=== PATIENT | male | born 1985 | race Caucasian/White ===

== ENCOUNTER 2017-04-19 11:48 | Inpatient (IN) | payer MEDICAID ==
[~2017-04-19] VITALS: Ht 165.1 cm; Wt 52.6 kg
[~2017-04-19 11:48] MED LIST: ERYT.5%O RIGHT EYE; HYDR-3533 PO; Z.0.NO CURRENT MEDS
[2017-04-19 11:52] VITALS: BP 112/69; PULSE 65; RESP 12; TEMP 97.5; O2SAT 98
--- NOTE | 2017-04-19 12:01 | PD ---
Physical Exam Time Seen by Provider: 12:00 Narrative 31-year-old male presents via private vehicle after falling approximately 10 feet from a ladder today with complaint of left knee pain. Patient has cervical collar in place, but denies neck pain. Denies hitting his head or loss of consciousness. Denies back pain. Denies vomiting. Patient seen in triage. VS reviewed. Patient awaiting bed placement. Data Data Last Documented VS Vital Signs Date Time Temp Pulse Resp B/P (MAP) Pulse Ox O2 Delivery O2 Flow Rate FiO2 04/19/17 11:52 97.5 65 12 112/69 (83) 98 Orders Orders Knee, Complete (4vws) (04/19/17 12:01) MDM Supervised Visit with YESY: Roseline Kohli Apr 19, 2017 12:01
--- NOTE | 2017-04-19 13:09 | RADRPT ---
EXAM DATE/TIME: 04/19/2017 12:53 [facility] COMPARISON: No previous studies available for comparison. INDICATIONS : Fell from ladder today, pain entire left knee, especially anterior MEDICAL HISTORY : None. SURGICAL HISTORY : None. ENCOUNTER: Initial ACUITY: 1 day PAIN SCORE: 10/10 LOCATION: Left knee FINDINGS: There is a joint effusion with a fat fluid level on lateral view. There is a depressed fracture of th e medial tibial plateau by a proximally 7 mm. There is additional bone fragment laterally and posteri vijaya which is consistent with a posterior tibial fracture distracted. CONCLUSION: Hemarthrosis. Depressed fracture medial tibial plateau. Fracture posterior lateral tibia which is dis tracted. No evidence dislocation. Ulises Culver MD on April 19, 2017 at 13:05 Board Certified Radiologist. This report was verified electronically.
[2017-04-19 13:21] VITALS: BP 129/75; PULSE 67; RESP 18; O2SAT 100
[2017-04-19] MEDS ORDERED: SODIUM CHLOR 0.9% 1000 ML INJ 1,000 ML IV SCH (13:27)
[2017-04-19] MEDS ORDERED: MORPHINE SULFATE 4 MG/ML INJ IV PUSH ONE (13:30)
[2017-04-19] MEDS ORDERED: ONDANSETRON HCL 4 MG/2 ML VIAL IV PUSH ONE (13:30)
[2017-04-19 13:56] LABS: BASOPHIL % 0.3 % (0.0-2.0); EOSINOPHIL # 0.1 TH/MM3 (0-0.4); EOSINOPHIL % 0.5 % (0.0-4.0); HEMATOCRIT 47.3 % (39.0-51.0); HEMO FLAGS DIFF FINAL; LYMPH % 7.1 % (9.0-44.0); LYMPHOCYTE # 1.2 TH/MM3 (1.0-4.8); MEAN CELL VOLUME 87.3 FL (80.0-100.0); MEAN CORPUSCULAR HEMOGLOBIN 28.5 PG (27.0-34.0); MEAN CORPUSCULAR HGB CONC 32.6 % (32.0-36.0); MONO % 6.5 % (0.0-8.0); NEUT % 85.6 % (16.0-70.0); PLATELET COUNT 189 TH/MM3 (150-450); RED BLOOD COUNT 5.42 MIL/MM3 (4.50-5.90); RED CELL DISTRIBUTION WIDTH 12.9 % (11.6-17.2); WHITE BLOOD COUNT 17.5 TH/MM3 (4.0-11.0)
[2017-04-19 14:06] LABS: APTT (PATIENT) 22.8 SEC (24.3-30.1); PROTHROMBIN TIME - PATIENT 11.6 SEC (9.8-11.6)
[2017-04-19 14:15] LABS: BICARBONATE 28.2 MEQ/L (21.0-32.0); MAGNESIUM 2.4 MG/DL (1.5-2.5); POTASSIUM 3.8 MEQ/L (3.5-5.1)
--- NOTE | 2017-04-19 14:28 | PD ---
HPI Chief Complaint: Fall Time Seen by Provider: 13:25 Travel History International Travel<30 days: No Contact w/Intl Traveler<30days: No Traveled to known affect area: No History of Present Illness HPI 31-year-old male that presents to the ED for evaluation of fall. Patient reports that he was working on the roof on a ladder and he lost his balance and fell. Per patient he landed on his left knee. Patient has pain only to his left knee. He denies any other injury. States sign mild numbness around the area of the knee. Patient does have deformity that is obvious on exam on the left knee. No ankle, foot, hip pain noted. No back or neck pain. No head injury or loss of consciousness. Fall was witnessed by family members who attests to the kind of fall he had. Patient takes no medications. No prior injuries to this knee. Patient states that his pain is 10 out of 10. He is able to move the toes and the ankle. No obvious discoloration of the ankle. Patient does have a hematoma noted on the left knee. No allergies to medication. No other injuries noted. [facility] Past Medical History Medical History: Denies Significant Hx Tetanus Vaccination: Unknown Social History Alcohol Use: Yes ([facility]) Tobacco Use: Yes (1 PACK A DAY) Substance Use: Yes ([facility] ) Allergies-Medications (Allergen,Severity, Reaction): Coded Allergies: No Known Allergies (Verified , 04/19/17) Reported Meds & Prescriptions Reported Meds & Active Scripts Active No Active Prescriptions or Reported Medications Review of Systems Except as stated in HPI: all other systems reviewed are Neg Physical Exam Narrative GENERAL: SKIN: Warm and dry. HEAD: Atraumatic. Normocephalic. EYES: Pupils equal and round. No scleral icterus. No injection or drainage. ENT: No nasal bleeding or discharge. Mucous membranes pink and moist. Tongue is midline. No uvula deviation. NECK: Trachea midline. No JVD. CARDIOVASCULAR: Regular rate and rhythm. No murmurs, S3, S4. RESPIRATORY: No accessory muscle use. Clear to auscultation. Breath sounds equal bilaterally. GASTROINTESTINAL: Abdomen soft, non-tender, nondistended. Hepatic and splenic margins not palpable. MUSCULOSKELETAL: Extremities without clubbing, cyanosis, or edema. No obvious deformities. No lumbar, thoracic, cervical spine tenderness to palpation. Patient has full range of motion of the upper extremities with no pain. Full range of motion neck with no pain. No sign of head injury. Full range of motion of the ankles, toes, foot bilaterally with 2+ pulses bilaterally especially on the left foot in the dorsalis pedis and posterior tibialis. No obvious discoloration to the toes or foot bilaterally. Patient does have obvious deformity to the left knee with what appears to be slight subluxation of the lateral aspect of the tibia and fibula. Full ROM of the hips. sensation intact on my examination. NEUROLOGICAL: Awake and alert. No obvious cranial nerve deficits. Motor grossly within normal limits. Five out of 5 muscle strength in the arms and legs. Normal speech. PSYCHIATRIC: Appropriate mood and affect; insight and judgment normal. Data Data Last Documented VS Vital Signs Date Time Temp Pulse Resp B/P (MAP) Pulse Ox O2 Delivery O2 Flow Rate FiO2 04/19/17 13:26 (93) Room Air 04/19/17 13:21 64 18 100 04/19/17 11:52 97.5 Orders Orders Knee, Complete (4vws) (04/19/17 12:01) Electrocardiogram (04/19/17 13:23) Complete Blood Count With Diff (04/19/17 13:23) Basic Metabolic Panel (Bmp) (04/19/17 13:23) Prothrombin Time / Inr (Pt) (04/19/17 13:23) Act Partial Throm Time (Ptt) (04/19/17 13:23) Magnesium (Mg) (04/19/17 13:23) Chest, Single Ap (04/19/17 13:23) Iv Access Insert/Monitor (04/19/17 13:23) Ecg Monitoring (04/19/17 13:23) Oximetry (04/19/17 13:23) Splint Or Brace Apply/Monitor (04/19/17 13:23) Morphine Inj (Morphine Inj) (04/19/17 13:30) Ondansetron Inj (Zofran Inj) (04/19/17 13:30) Sodium Chlor 0.9% 1000 Ml Inj (Ns 1000 M (04/19/17 13:27) Ct Knee W/O Contrast (04/19/17 ) Mri Joint Knee W/O Contrast (04/19/17 14:09) Orbits, Limited (Two Views) (04/19/17 ) Cta Runoff W Iv Contrast W 3d (04/19/17 ) Type And Screen (04/19/17 15:18) Immobilizer Knee 20 Inch (04/19/17 ) Admit Order (Ed Use Only) (04/19/17 16:39) Labs Laboratory Tests Test 04/19/17 13:40 White Blood Count 17.5 TH/MM3 Red Blood Count 5.42 MIL/MM3 Hemoglobin 15.4 GM/DL Hematocrit 47.3 % Mean Corpuscular Volume 87.3 FL Mean Corpuscular Hemoglobin 28.5 PG Mean Corpuscular Hemoglobin Concent 32.6 % Red Cell Distribution Width 12.9 % Platelet Count 189 TH/MM3 Mean Platelet Volume 8.9 FL Neutrophils (%) (Auto) 85.6 % Lymphocytes (%) (Auto) 7.1 % Monocytes (%) (Auto) 6.5 % Eosinophils (%) (Auto) 0.5 % Basophils (%) (Auto) 0.3 % Neutrophils # (Auto) 15.0 TH/MM3 Lymphocytes # (Auto) 1.2 TH/MM3 Monocytes # (Auto) 1.1 TH/MM3 Eosinophils # (Auto) 0.1 TH/MM3 Basophils # (Auto) 0.0 TH/MM3 CBC Comment DIFF FINAL Differential Comment Prothrombin Time 11.6 SEC Prothromb Time International Ratio 1.0 RATIO Activated Partial Thromboplast Time 22.8 SEC Blood Urea Nitrogen 14 MG/DL Creatinine 1.15 MG/DL Random Glucose 99 MG/DL Calcium Level 8.8 MG/DL Magnesium Level 2.4 MG/DL Sodium Level 142 MEQ/L Potassium Level 3.8 MEQ/L Chloride Level 108 MEQ/L Carbon Dioxide Level 28.2 MEQ/L Anion Gap 6 MEQ/L Estimat Glomerular Filtration Rate 75 ML/MIN MDM Medical Decision Making Medical Screen Exam Complete: Yes Emergency Medical Condition: Yes Medical Record Reviewed: Yes Interpretation(s) CBC & BMP Diagram 04/19/17 13:40 Calcium Level 8.8, Magnesium Level 2.4 Last Impressions Chest X-Ray 04/19/17 1323 Signed Impressions: Service Date/Time: Wednesday, April 19, 2017 13:55 - CONCLUSION: No acute cardiopulmonary process. Brian Kyle MD Knee X-Ray 04/19/17 1201 Signed Impressions: Service Date/Time: Wednesday, April 19, 2017 12:53 - CONCLUSION: Hemarthrosis. Depressed fracture medial tibial plateau. Fracture posterior lateral tibia which is distracted. No evidence dislocation. Ulises Culver MD Orbit X-Ray 04/19/17 0000 Signed Impressions: Service Date/Time: Wednesday, April 19, 2017 14:38 - CONCLUSION: Cleared for MRI. Negative for metallic radiopaque foreign body Ulises Culver MD EKG shows sinus rythm with no sign of acute ischemia or arrythmia. Read by me and attending. coags WNL Differential Diagnosis Fracture versus dislocation versus fall versus trauma Narrative Course 31-year-old male that presents to the ED for evaluation of left knee injury. Patient was properly examined and was found to have signs and symptoms consistent with fracture. X-ray was done at triage and show fracture of the tibia Morrell as well as the fibula. Patient does have some subluxation. When patient was moved to the medical bed IV was established as well as labs and imaging were ordered. CT was ordered of the knee by me. Patient appears to be neurovascularly intact at this time. No sign of any neurological deficits. Patient will be put on a splint. Case was discussed with Dr. Echevarria over the phone who recommends MRI, CT and keeping the patient nothing by mouth. He will evaluate the patient to see whether the patient will need surgery today. He recommends admission to medicine. This was discussed with my attending Dr Fine who agrees with plan. This was discussed with patient and family who agree with plan. [facility] was paged. Initially the call center at had passed told us that they wanted is to consult with trauma surgeon. Spoke with Dr. Guerin CTA of the extremities. This was negative. He recommends admission through medicine as patient only has one injury and per patient this doesnt meed trauma team admission. Case discussed with Dr Roger who agrees to admission. Diagnosis Primary Impression: Tibial plateau fracture, left Qualified Codes: S82.142A - Displaced bicondylar fracture of left tibia, initial encounter for closed fracture Additional Impression: Fibula fracture Qualified Codes: S82.832A - Other fracture of upper and lower end of left fibula, initial encounter for closed fracture Admitting Information Admitting Physician Requests: Admit Scripts No Active Prescriptions or Reported Meds Jose Francisco Hargrove Apr 19, 2017 14:28
--- NOTE | 2017-04-19 14:54 | RADRPT ---
EXAM DATE/TIME: 04/19/2017 14:38 [facility] COMPARISON: No previous studies available for comparison. INDICATIONS : Evaluate for foreign body. Clearance for MRI. MEDICAL HISTORY : None. SURGICAL HISTORY : None. ENCOUNTER: Initial ACUITY: 1 day PAIN SCORE: 0/10 LOCATION: Bilateral orbits FINDINGS: Limited examination of the orbits was performed. There is no evidence of fracture involving the bony structures surrounding the orbits. The maxillary sinuses appear to be well aerated. No radiopaque foreign bodies are seen in the soft tissues. CONCLUSION: Cleared for MRI. Negative for metallic radiopaque foreign body Ulises Culver MD on April 19, 2017 at 14:52 Board Certified Radiologist. This report was verified electronically.
--- NOTE | 2017-04-19 14:58 | RADRPT ---
EXAM DATE/TIME: 04/19/2017 13:55 [facility] COMPARISON: No previous studies available for comparison. INDICATIONS : Evaluate for pneumonia, pneumothorax or communicable disease. Pre-op for knee surgery. MEDICAL HISTORY : Smoker. SURGICAL HISTORY : None. ENCOUNTER: Initial ACUITY: 1 day PAIN SCORE: 0/10 LOCATION: Bilateral chest FINDINGS: A single view of the chest demonstrates the lungs to be symmetrically aerated without evidence of mas s, infiltrate or effusion. The cardiomediastinal contours are unremarkable. Osseous structures are intact. CONCLUSION: No acute cardiopulmonary process. Brian Kyle MD on April 19, 2017 at 14:57 Board Certified Radiologist. This report was verified electronically.
--- NOTE | 2017-04-19 15:44 | PD.CAR.PN ---
CVT Progress Note Subjective/Hospital Course: Patient seen Consult dictated J Objective: Vital Signs Date Time Temp Pulse Resp B/P (MAP) Pulse Ox O2 Delivery O2 Flow Rate FiO2 04/19/17 13:26 (93) Room Air 04/19/17 13:21 64 18 100 Room Air 04/19/17 13:21 67 18 129/75 (93) 100 04/19/17 11:52 97.5 65 12 112/69 (83) 98 Labs: Laboratory Tests Test 04/19/17 13:40 White Blood Count 17.5 TH/MM3 (4.0-11.0) Red Blood Count 5.42 MIL/MM3 (4.50-5.90) Hemoglobin 15.4 GM/DL (13.0-17.0) Hematocrit 47.3 % (39.0-51.0) Mean Corpuscular Volume 87.3 FL (80.0-100.0) Mean Corpuscular Hemoglobin 28.5 PG (27.0-34.0) Mean Corpuscular Hemoglobin Concent 32.6 % (32.0-36.0) Red Cell Distribution Width 12.9 % (11.6-17.2) Platelet Count 189 TH/MM3 (150-450) Mean Platelet Volume 8.9 FL (7.0-11.0) Neutrophils (%) (Auto) 85.6 % (16.0-70.0) Lymphocytes (%) (Auto) 7.1 % (9.0-44.0) Monocytes (%) (Auto) 6.5 % (0.0-8.0) Eosinophils (%) (Auto) 0.5 % (0.0-4.0) Basophils (%) (Auto) 0.3 % (0.0-2.0) Neutrophils # (Auto) 15.0 TH/MM3 (1.8-7.7) Lymphocytes # (Auto) 1.2 TH/MM3 (1.0-4.8) Monocytes # (Auto) 1.1 TH/MM3 (0-0.9) Eosinophils # (Auto) 0.1 TH/MM3 (0-0.4) Basophils # (Auto) 0.0 TH/MM3 (0-0.2) CBC Comment DIFF FINAL Differential Comment Prothrombin Time 11.6 SEC (9.8-11.6) Prothromb Time International Ratio 1.0 RATIO Activated Partial Thromboplast Time 22.8 SEC (24.3-30.1) Blood Urea Nitrogen 14 MG/DL (7-18) Creatinine 1.15 MG/DL (0.60-1.30) Random Glucose 99 MG/DL (74-106) Calcium Level 8.8 MG/DL (8.5-10.1) Magnesium Level 2.4 MG/DL (1.5-2.5) Sodium Level 142 MEQ/L (136-145) Potassium Level 3.8 MEQ/L (3.5-5.1) Chloride Level 108 MEQ/L (98-107) Carbon Dioxide Level 28.2 MEQ/L (21.0-32.0) Anion Gap 6 MEQ/L (5-15) Estimat Glomerular Filtration Rate 75 ML/MIN (>89) Result Diagram: 04/19/17 1340 04/19/17 1340 Edmond Feliciano MD Apr 19, 2017 15:44
--- NOTE | 2017-04-19 16:09 | RADRPT ---
EXAM DATE/TIME: 04/19/2017 14:57 [facility] COMPARISON: KNEE LEFT COMPLETE (4VWS), April 19, 2017, 12:53. INDICATIONS : Trauma. Fell from ladder today. MEDICAL HISTORY : None. SURGICAL HISTORY : None. ENCOUNTER: Subsequent ACUITY: 1 day PAIN SCORE: 5/10 LOCATION: Left knee. TECHNIQUE: Multiplanar, multisequence MRI examination was performed without contrast. FINDINGS: CRUCIATE LIGAMENTS: ACL and PCL are intact. There is some fracturing of the anterior tibial spines slight laxity of the A CL MENISCI: There is tearing of the body and posterior horn medial meniscus. There is undersurface tearing of the posterior horn lateral meniscus and anterior horn lateral meniscus. COLLATERAL LIGAMENTS: MCL appears intact. There is tearing of the lateral collateral ligament. BONE/CARTILAGE: There is an oblique fracture through the medial tibial plateau with minimal depression. The fracture also extends across midline and involves the tibial spines and the anterior medial tibial plateau. No significant depression medial tibial plateau. There is also an avulsion fracture of the portions of the fibular head. Prominent contusion along the medial femoral condyle anteriorly and medially. Tiny fracture of the anterior medial femoral condyle. Extensive soft tissue swelling laterally. MISCELLANEOUS: Large lipohemarthrosis. CONCLUSION: 1. Oblique fracture of the medial tibial plateau with slight depression. The fracture line extends ac ross midline and involves the anterior tibial spines and anterior medial tibial plateau. 2. Minimal fracture of the anterior medial femoral condyle. 3. Tearing of both medial lateral menisci. 4. Avulsion fracture of the fibular head. 5. Extensive tearing of the lateral collateral ligament. Talat Burkett MD on April 19, 2017 at 15:56 Board Certified Radiologist. This report was verified electronically.
--- NOTE | 2017-04-19 16:19 | RADRPT ---
EXAM DATE/TIME: 04/19/2017 15:40 [facility] COMPARISON: KNEE LEFT COMPLETE (4VWS), April 19, 2017, 12:53. INDICATIONS : Left knee pain. RADIATION DOSE: 1.45 CTDIvol (mGy) MEDICAL HISTORY : None SURGICAL HISTORY : None. ENCOUNTER: Initial ACUITY: 1 day PAIN SCALE: 10/10 LOCATION: Left knee TECHNIQUE: Volumetric scanning of the knee was performed. Using automated exposure control and adjustment of th e mA and/or kV according to patient size, radiation dose was kept as low as reasonably achievable to obtain optimal diagnostic quality images. DICOM format image data is available electronically for re view and comparison. FINDINGS: BONES: Lipohemarthrosis. Fracture of the medial tibial plateau extending into the midline involves the anter ior tibial spine. Tiny fracture involving the anterior lateral tibial plateau. There is avulsion frac ture of small portion of the fibular head. JOINTS: Large joint effusion. SOFT TISSUES: Extensive soft tissue swelling. Muscles, tendons and neurovascular structures are grossly unremarkabl e. No evidence of mass, organized fluid collection, or foreign body. CONCLUSION: 1. Fracture of the medial tibial plateau extending into the midline involving anterior tibial spine. Slight depression. 2. Avulsion fracture small portion of the fibular head. 3. Minimal fracture of the anterior lateral tibial plateau and anterior medial femoral condyle. Talat Burkett MD on April 19, 2017 at 16:15 Board Certified Radiologist. This report was verified electronically.
--- NOTE | 2017-04-19 16:45 | HHI.HP ---
HPI Service [facility] Primary Care Physician No Primary Care Physician Admission Diagnosis left knee tibial plateau and proximal fibular fracture, fall Diagnoses: Chief Complaint: Status post fall Travel History International Travel<30 Days: No Contact w/Intl Traveler <30 Da: No Traveled to Known Affected Are: No History of Present Illness This is a pleasant 31 y/o with status post fall from a Ladder, after he lost his balance, Per patient he landed on his left knee. Patient has pain only to his left knee. He denies any other injury. States sign mild numbness around the area of the knee. Patient does have deformity that is obvious on exam on the left knee. No ankle , foot, hip pain noted. No back or neck pain. No head injury or loss of consciousness. Fall was witnessed by family members who attests to the kind of fall he had. Patient takes no medications. No prior injuries to this knee. Patient states that his pain is 10 out of 10. He is able to move the toes and the ankle. No obvious discoloration of the ankle. Patient does have a hematoma noted on the left knee. No allergies to medication. No other injuries noted. Seen in his bedroom in the presence of nurse and his Girlfriend miss Lissette Kang, Doctor Najma in to see the patient his plan is to keep the patient hospitalized because he will need a reconstruction of the knee. will be performed next Saturday04/22/17 Review of Systems Constitutional: DENIES: Fever, Chills, Change in appetite Endocrine: DENIES: Heat/cold intolerance Eyes: DENIES: Blurred vision, Eye pain Musculoskeletal: COMPLAINS OF: Joint pain Except as stated in HPI: all other systems reviewed are Neg Past Family Social History Past Medical History No significant Past medical History Past Surgical History No past surgical history Reported Medications Reported Meds & Active Scripts Active No Active Prescriptions or Reported Medications Allergies: Coded Allergies: No Known Allergies (Verified , 04/19/17) Active Ordered Medications Current Medications Medications (Trade) Dose Ordered Sig/Rico Route Start Time Stop Time Status Last Admin Sodium Chloride 1,000 ml @ 100 mls/hr Q10H IV 04/19/17 16:47 UNV (NS Flush) 2 ml UNSCH PRN IV FLUSH 04/19/17 17:00 UNV (NS Flush) 2 ml BID IV FLUSH 04/19/17 21:00 UNV (Tylenol) 650 mg Q4H PRN PO 04/19/17 17:00 UNV (Zofran Inj) 4 mg Q6H PRN IVP 04/19/17 17:00 UNV (Narcan Inj) 0.4 mg UNSCH PRN IV PUSH 04/19/17 17:00 UNV (Dayanara-Colace) 1 tab BID PO 04/19/17 21:00 UNV (Milk Of Magnesia Liq) 30 ml Q12H PRN PO 04/19/17 17:00 UNV (Senokot) 17.2 mg Q12H PRN PO 04/19/17 17:00 UNV (Dulcolax Supp) 10 mg DAILY PRN RECTAL 04/19/17 17:00 UNV (Lactulose Liq) 30 ml DAILY PRN PO 04/19/17 17:00 UNV Family History Father with CAD Social History Alcohol abuse Occasional Tobacco dependence one pack daily Marijuana abuse Physical Exam Vital Signs Vital Signs Date Time Temp Pulse Resp B/P (MAP) Pulse Ox O2 Delivery O2 Flow Rate FiO2 04/19/17 13:26 (93) Room Air 04/19/17 13:21 64 18 100 Room Air 04/19/17 13:21 67 18 129/75 (93) 100 04/19/17 11:52 97.5 65 12 112/69 (83) 98 Physical Exam GENERAL: Well developed in no acute distress. SKIN: Warm and dry. HEAD: Atraumatic. Normocephalic. EYES: Pupils equal and round. No scleral icterus. No injection or drainage. ENT: No nasal bleeding or discharge. Mucous membranes pink and moist. Tongue is midline. No uvula deviation. NECK: Trachea midline. No JVD. CARDIOVASCULAR: Regular rate and rhythm. No murmurs, S3, S4. RESPIRATORY: No accessory muscle use. Clear to auscultation. Breath sounds equal bilaterally. GASTROINTESTINAL: Abdomen soft, non-tender, nondistended. Hepatic and splenic margins not palpable. MUSCULOSKELETAL: Patient does have obvious deformity to the left knee with what appears to be slight subluxation of the lateral aspect of the tibia and fibula. NEUROLOGICAL: Awake and alert. No obvious cranial nerve deficits. Motor grossly within normal limits. Five out of 5 muscle strength in the arms and legs. Normal speech. PSYCHIATRIC: Appropriate mood and affect; insight and judgment normal. Laboratory Laboratory Tests Test 04/19/17 13:40 White Blood Count 17.5 Red Blood Count 5.42 Hemoglobin 15.4 Hematocrit 47.3 Mean Corpuscular Volume 87.3 Mean Corpuscular Hemoglobin 28.5 Mean Corpuscular Hemoglobin Concent 32.6 Red Cell Distribution Width 12.9 Platelet Count 189 Mean Platelet Volume 8.9 Neutrophils (%) (Auto) 85.6 Lymphocytes (%) (Auto) 7.1 Monocytes (%) (Auto) 6.5 Eosinophils (%) (Auto) 0.5 Basophils (%) (Auto) 0.3 Neutrophils # (Auto) 15.0 Lymphocytes # (Auto) 1.2 Monocytes # (Auto) 1.1 Eosinophils # (Auto) 0.1 Basophils # (Auto) 0.0 CBC Comment DIFF FINAL Differential Comment Prothrombin Time 11.6 Prothromb Time International Ratio 1.0 Activated Partial Thromboplast Time 22.8 Blood Urea Nitrogen 14 Creatinine 1.15 Random Glucose 99 Calcium Level 8.8 Magnesium Level 2.4 Sodium Level 142 Potassium Level 3.8 Chloride Level 108 Carbon Dioxide Level 28.2 Anion Gap 6 Estimat Glomerular Filtration Rate 75 Result Diagram: 04/19/17 1340 04/19/17 1340 Imaging Last Impressions Knee MRI 04/19/17 1409 Signed Impressions: Service Date/Time: Wednesday, April 19, 2017 14:57 - CONCLUSION: 1. Oblique fracture of the medial tibial plateau with slight depression. The fracture line extends across midline and involves the anterior tibial spines and anterior medial tibial plateau. 2. Minimal fracture of the anterior medial femoral condyle. 3. Tearing of both medial lateral menisci. 4. Avulsion fracture of the fibular head. 5. Extensive tearing of the lateral collateral ligament. Talat Burkett MD Chest X-Ray 04/19/17 1323 Signed Impressions: Service Date/Time: Wednesday, April 19, 2017 13:55 - CONCLUSION: No acute cardiopulmonary process. Brian Kyle MD Knee X-Ray 04/19/17 1201 Signed Impressions: Service Date/Time: Wednesday, April 19, 2017 12:53 - CONCLUSION: Hemarthrosis. Depressed fracture medial tibial plateau. Fracture posterior lateral tibia which is distracted. No evidence dislocation. Ulises Cluver MD Orbit X-Ray 04/19/17 0000 Signed Impressions: Service Date/Time: Wednesday, April 19, 2017 14:38 - CONCLUSION: Cleared for MRI. Negative for metallic radiopaque foreign body Ulises Culver MD Lower Extremity CT 04/19/17 0000 Signed Impressions: Service Date/Time: Wednesday, April 19, 2017 15:40 - CONCLUSION: 1. Fracture of the medial tibial plateau extending into the midline involving anterior tibial spine. Slight depression. 2. Avulsion fracture small portion of the fibular head. 3. Minimal fracture of the anterior lateral tibial plateau and anterior medial femoral condyle. MD Harrison Louise VTE Risk Assessment Caprini VTE Risk Assessment: No/Low Risk (score <= 1) Caprini Risk Assessment Model Point Value = 1 Point Value = 2 Point Value = 3 Point Value = 5 Age 41-60 Minor surgery BMI > 25 kg/m2 Swollen legs Varicose veins or History of unexplained or recurrent spontaneous Oral contraceptives or hormone replacement Sepsis (< 1 month) Serious lung disease, including pneumonia (< 1 month) Abnormal pulmonary function Acute myocardial infarction Congestive heart failure (< 1 month) History of inflammatory bowel disease Medical patient at bed rest Age 61-74 Arthroscopic surgery Major open surgery (> 45 min) Laparoscopic surgery (> 45 min) Malignancy Confined to bed (> 72 hours) Immobilizing plaster cast Central venous access Age >= 75 History of VTE Family history of VTE Factor V Leiden Prothrombin [id number] Lupus anticoagulant Anticardiolipin antibodies Elevated serum homocysteine Heparin-induced thrombocytopenia Other congenital or acquired thrombophilia Stroke (< 1 month) Elective arthroplasty Hip, pelvis, or leg fracture Acute spinal cord injury (< 1 month) Prophylaxis Regimen Total Risk Factor Score Risk Level Prophylaxis Regimen 0-1 Low Early ambulation 2 Moderate Order ONE of the following: *Sequential Compression Device (SCD) *Heparin 5000 units SQ BID 3-4 Higher Order ONE of the following medications: *Heparin 5000 units SQ TID *Enoxaparin/Lovenox 40 mg SQ daily (WT < 150 kg, CrCl > 30 mL/min) *Enoxaparin/Lovenox 30 mg SQ daily (WT < 150 kg, CrCl > 10-29 mL/min) *Enoxaparin/Lovenox 30 mg SQ BID (WT < 150 kg, CrCl > 30 mL/min) AND/OR *Sequential Compression Device (SCD) 5 or more Highest Order ONE of the following medications: *Heparin 5000 units SQ TID (Preferred with Epidurals) *Enoxaparin/Lovenox 40 mg SQ daily (WT < 150 kg, CrCl > 30 mL/min) *Enoxaparin/Lovenox 30 mg SQ daily (WT < 150 kg, CrCl > 10-29 mL/min) *Enoxaparin/Lovenox 30 mg SQ BID (WT < 150 kg, CrCl > 30 mL/min) AND *Sequential Compression Device (SCD) Assessment and Plan Assessment and Plan 1. Left Tibial Plateau Fracture with Displaced bicondylar fracture of left tibia, initial encounter for closed fracture seen in the presence of Doctor Giovanni Yao asked to keep the patient Hospitalized until next 04/22/17 and he will have procedure performed that day 2. Tobacco dependence strongly recommended to stop smoking, Nicotine patch started 3. Marijuana abuse strongly recommended to stop behavior. DVT prophylaxis with Lovenox if surgery not planned now Code Status Full Code Discussed Condition With Jose Francisco Hargrove Patient and his Girlfriend Miss Lissette Kang, all questions answered to the best of my abilities Doctor Yao in to see patient at this time he states the procedure will be performed with another specialist for next Saturday04/22/17 due to the complexity of the trauma. and needs reconstruction. Physician Certification 2 Midnight Certification Type: Admission for Inpatient Services Order for Inpatient Services The services are ordered in accordance with Medicare regulations or non- Medicare payer requirements, as applicable. In the case of services not specified as inpatient-only, they are appropriately provided as inpatient services in accordance with the 2-midnight benchmark. Estimated LOS (days): 3 days is the estimated time the patient will need to remain in the hospital, assuming treatment plan goals are met and no additional complications. Post-Hospital Plan: Not yet determined Mal Campbell MD Apr 19, 2017 16:45
[2017-04-19] MEDS ORDERED: IOHEXOL 350 MG/ML 10 ML VIAL (for RAD DIAG) IVCONTRAST ONE (16:49)
[2017-04-19] MEDS ORDERED: BISACODYL 10 MG SUPP RECTAL PRN (17:00)
[2017-04-19] MEDS ORDERED: ONDANSETRON HCL 4 MG/2 ML VIAL IVP PRN (17:00)
[2017-04-19] MEDS ORDERED: NALOXONE HCL 0.4 MG/ML AMP IV PUSH PRN (17:00)
[2017-04-19] MEDS ORDERED: MAGNESIUM HYDROXIDE SUSP 30 ML CUP PO PRN (17:00)
[2017-04-19] MEDS ORDERED: SODIUM CHLORIDE 0.9% FLUSH 10 ML FLUSH IV FLUSH PRN (17:00)
[2017-04-19] MEDS ORDERED: SENNOSIDES 8.6 MG TAB PO PRN (17:00)
[2017-04-19] MEDS ORDERED: ACETAMINOPHEN 325 MG TAB PO PRN ×2 (17:00→17:30)
--- NOTE | 2017-04-19 17:05 | RADRPT ---
EXAM DATE/TIME: 04/19/2017 15:40 [facility] COMPARISON: No previous studies available for comparison. INDICATIONS : Trauma, fall from tree. Left knee injury. IV CONTRAST: 96 cc Omnipaque 350 (iohexol) IV RADIATION DOSE: 2.45 CTDIvol (mGy) MEDICAL HISTORY : None SURGICAL HISTORY : None. ENCOUNTER: Initial ACUITY: 1 day PAIN SCALE: 10/10 LOCATION: Left knee TECHNIQUE: Volumetric scanning was performed using a multi-row detector CT scanner. The data was post processed with a variety of visualization algorithms including full volume maximum intensity projection, multi -planar sliding thin slab reformation, curved planar reformation, and surface rendering techniques. Using automated exposure control and adjustment of the mA and/or kV according to patient size, radiat ion dose was kept as low as reasonably achievable to obtain optimal diagnostic quality images. DICO M format image data is available electronically for review and comparison. FINDINGS: ABDOMINAL AORTA: The lumen is smooth without significant narrowing or aneurysmal dilation. A 50% ostial stenosis of katelyn th the celiac and the SMA.. There are solitary renal arteries bilaterally without gross abnormality. BIFURCATION: Normal. RIGHT PELVIS: The right common iliac, internal iliac, and external iliac vessels are patent without luminal irregul arity. LEFT PELVIS: The left common iliac, internal iliac, and external iliac vessels are patent and without luminal irre gularity. RIGHT THIGH: The superficial femoral and profunda vessels are patent without luminal irregularity. LEFT THIGH: The superficial femoral and profunda vessels are patent without luminal irregularity. RIGHT KNEE: The distal femoral and popliteal arteries are patent without luminal irregularity. LEFT KNEE: The distal femoral and popliteal arteries are patent without luminal irregularity. Comminuted tibial plateau fracture medially. RIGHT LEG: The trifurcation is intact. LEFT LEG: The trifurcation is intact. CONCLUSION: 1. Comminuted tibial plateau fracture medially on the left. 2. 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 3. Otherwise, inflow and outflow vasculature is patent bilaterally. Brian Kyle MD on April 19, 2017 at 16:53 Board Certified Radiologist. This report was verified electronically.
--- NOTE | 2017-04-19 17:47 | MB ---
cc: EDMOND BRIZUELA MD DATE OF CONSULTATION: 04/19/2017. REASON FOR CONSULTATION: Hemarthroses of the left knee. Fracture of the tibial plateau. HISTORY OF PRESENT ILLNESS: This 31-year-old male fell off a ladder and was brought in as regular ER evaluation. On workup, he was found to have a small tibial plateau fracture measuring about 8 mm and he also possibly had a knee dislocation. In addition, he has swelling of the knee consistent with hemarthrosis. I have been asked to see the patient for the same plus the possible vascular injury. PAST MEDICAL HISTORY: The patient has been here several times with minor issues in the emergency room. PAST SURGICAL HISTORY: The past surgical history is negative. MEDICATIONS: None. ALLERGIES: NONE. SOCIAL HISTORY: The patient smokes a pack a day of cigarettes and uses pot. PHYSICAL EXAMINATION: GENERAL: The physical examination reveals a pleasant 31-year-old male. HEAD, EYES, EARS, NOSE, THROAT: Normocephalic. No trauma to the head. Pupils equal and reactive. Extraocular muscles intact. No hemotympanum. No monsalve sign. No signs of trauma to the head. NECK: The neck is supple. Bilateral carotid pulses. No signs of trauma to the neck. CHEST: Clear. Bilateral breath sounds. HEART: Regular rhythm. No signs of trauma to the chest or abdomen. The abdomen is soft. Active bowel sounds. No rebound. No guarding. No masses. EXTREMITIES: The patient has normal brachial, radial and ulnar pulses. The patient has normal femoral bilateral pulses, popliteal pulses and dorsalis pedis and posterior tibial pulses bilaterally. There are no hard or soft signs of vascular injury on the left that would indicate injury to the popliteal artery. NEUROLOGIC: The patient is fully intact. IMPRESSION: A patient with hemarthrosis of the left knee plus plateau fracture due to the fall. Patients like this can have a posterior knee dislocation and have occult injury to the popliteal artery so it is imperative in these situations to perform CTA of the knee. If this is negative, the patient is cleared from the trauma point and vascular point and further care can be through orthopedics and the patient can be admitted with a single injury to their service. ACS and ASCOT specified the trauma patients of those with ISS score of 15 or above and those admitted to trauma service in a level I and level II Trauma Ctr. Edmond GREGORY /3:41 PM /5:34 PM [facility]
[2017-04-19 17:49] VITALS: BP 140/88; PULSE 74; RESP 20; O2SAT 100
--- NOTE | 2017-04-19 18:19 | MB ---
cc: LEE GONG M.D. DATE OF CONSULTATION: 04/19/2017. REASON FOR CONSULTATION: The patient has a left leg tibial plateau fracture and lateral collateral ligament injury. HISTORY OF PRESENT ILLNESS: The patient is a 31-year-old man who fell off a ladder when he lost balance and landed onto his left knee. He does not complain of pain in other body areas. He does not describe any specific numbness or tingling associated with the left leg. He has had no previous problems with the leg in the past. He was unable to ambulate after the injury. His pain is a 10/10. The emergency room had contacted me after seeing the x-rays and recommended to obtain a CT scan and an MRI of the knee. PAST MEDICAL HISTORY: His past medical history is negative. PAST SURGICAL HISTORY: None. REVIEW OF SYSTEMS: A twelve-point review of systems is negative except as noted in the history of present illness. SOCIAL HISTORY: The patient drinks alcohol occasionally and smokes one pack per day and does smoke marijuana. PHYSICAL EXAMINATION: GENERAL: The patient's temperature is 97.5, pulse 65, respirations 12, blood pressure 112/69. GENERAL: The patient is awake, alert and oriented times three with normal affect, insight and judgment. He is not in significant acute distress. HEAD, EYES, EARS, NOSE, THROAT: Atraumatic. Pupils are equal with extraocular muscles are intact. NECK: Neck is nontender and supple. BACK: No CVA tenderness. HEART: Regular rate and rhythm. LUNGS: Clear to auscultation bilaterally. ABDOMEN: The abdomen is soft, nontender and nondistended. EXTREMITIES: The left lower extremity is currently in a canvas knee splint. He can move the toes well. His extensor hallucis longus and tibialis anterior and gastrocnemius are intact. There is normal sensation distally. He has 2+ dorsalis pedis pulse distally. His lower calf has no swelling. The right leg and bilateral upper extremities have good alignment and normal range of motion and no tenderness. LABORATORY DATA White cell count 17.5, hematocrit 47.3, platelets 189,000. Glucose 99, creatinine 1.15. IMAGING STUDIES: I have reviewed x-rays, a CT scan and MRI and I also reviewed the radiology report. Essentially the x-rays show a comminuted displaced medial tibial plateau fracture. There is some subluxation of the joint and then there is a fracture of the head of the fibula which is significantly displaced. The CT scan confirms these findings but overall the alignment does look more improved than the original x-rays as far as the alignment of the tibial femoral joint. The medial plateau fracture also seems a little less displaced. The MRI shows not only the fracture of the medial tibial plateau but it also shows injury to the lateral collateral ligament as would be expected with the fracture of the fibular head. The radiologist feels that the posterior cruciate ligament is intact, although I am suspicious for possible posterior cruciate ligament tear. The anterior cruciate ligament appears to be intact. There is tears of the medial and lateral menisci. IMPRESSION: 1. Left medial tibial plateau fracture, comminuted. 2. Left lateral collateral ligament injury with fracture of the head of the fibula. 3. Medial and lateral meniscal tears. 4. Possible posterior cruciate ligament injury. 5. Chronic tobacco use. DECISION-MAKING: This is a very complex pattern of injury for the left knee which may require the assistance of multiple sub-specialties. Overall the alignment looks good of the bones within the canvas knee splint. The patient is being admitted for ice and elevation. He will continue with the canvas knee splint. The patient will require surgical management, which will consist at the least of an open reduction internal fixation of the medial tibial plateau and repair of the lateral collateral ligament and/or fibular head. The patient may require further surgical management beyond this. I would like to consult an orthopedic trauma sub-specialist to evaluate the patient to assist with surgical management. All questions have been answered. MD RAMIN Hicks/JAILENE /5:11 PM /6:03 PM WILLIAM
[2017-04-19] MEDS: NICOTINE 21 MG/24 HR PATCH T-DERMAL SCH (18:25)
[2017-04-19] MEDS: SODIUM CHLOR 0.9% 1000 ML INJ 1,000 ML IV SCH (18:25)
[2017-04-19 20:00] VITALS: BP 121/69
[2017-04-19 21:00] VITALS: BP 127/71; PULSE 71; RESP 18; TEMP 98.9; O2SAT 100
[2017-04-19] MEDS ORDERED: ACETAMINOPHEN/HYDROcodone 325 MG/5 MG TAB PO PRN (21:00)
[2017-04-19] MEDS: DOCUSATE SODIUM 50 MG/SENNA 8.6 MG TAB PO SCH (21:36)
[2017-04-19] MEDS: SODIUM CHLORIDE 0.9% FLUSH 10 ML FLUSH IV FLUSH SCH (21:37)
[2017-04-19] MEDS: HEPARIN SODIUM - SQ 10,000 UNITS/ML VIAL SQ SCH (21:37)
[2017-04-19] MEDS: ACETAMINOPHEN/HYDROcodone 325 MG/7.5 MG TAB PO PRN (22:15)
[2017-04-20 00:20] VITALS: BP 113/62; PULSE 70; RESP 18; TEMP 97.8; O2SAT 99
[2017-04-20] MEDS: ACETAMINOPHEN/HYDROcodone 325 MG/7.5 MG TAB PO PRN ×5 (03:31→21:08)
[2017-04-20] MEDS: SODIUM CHLOR 0.9% 1000 ML INJ 1,000 ML IV SCH ×3 (04:00→22:51)
[2017-04-20 04:06] VITALS: BP 132/76; PULSE 74; RESP 18; TEMP 98.5; O2SAT 99
[2017-04-20] MEDS ORDERED: SODIUM CHLORID 0.9% 500 ML IV PRN (05:45)
[2017-04-20] MEDS ORDERED: POVIDONE IODINE 5% (ANTISEPSIS KIT) 4 APPLICATIONS EACH NARE PRN (05:45)
[2017-04-20] MEDS ORDERED: CHLORHEXIDINE GLUCONATE 2 % 1 PACK (2 CLOTHS) TOPICAL PRN (05:45)
[2017-04-20] MEDS ORDERED: INSULIN HUMAN REGULAR 1,000 UNITS/10 ML VIAL SQ PRN (05:45)
[2017-04-20] MEDS ORDERED: LACTATED RINGER'S 1000 ML IV PRN (05:45)
[2017-04-20 08:00] VITALS: BP 130/75; PULSE 68; RESP 18; TEMP 97; O2SAT 100
--- NOTE | 2017-04-20 08:33 | HHI.PR ---
Subjective Remarks This is a pleasant 31 y/o with status post fall from a Ladder, after he lost his balance, Per patient he landed on his left knee. Patient has pain only to his left knee. He denies any other injury. States sign mild numbness around the area of the knee. Patient does have deformity that is obvious on exam on the left knee. No ankle , foot, hip pain noted. No back or neck pain. No head injury or loss of consciousness. Fall was witnessed by family members who attests to the kind of fall he had. Patient takes no medications. No prior injuries to this knee. Patient states that his pain is 10 out of 10. He is able to move the toes and the ankle. No obvious discoloration of the ankle. Patient does have a hematoma noted on the left knee. No allergies to medication. No other injuries noted. Seen in his bedroom in the presence of nurse and his Girlfriend miss Lissette Kang, Doctor Najma in to see the patient his plan is to keep the patient hospitalized because he will need a reconstruction of the knee. will be performed next Saturday04/22/1704/20: seen in his bedroom in the presence of his , and Daughter, no nausea , vomit or diarrhea awaiting for surgery for 04/22/17. Objective Vital Signs Date Time Temp Pulse Resp B/P (MAP) Pulse Ox O2 Delivery O2 Flow Rate FiO2 04/20/17 04:06 98.5 74 18 132/76 (94) 99 04/20/17 00:20 97.8 70 18 113/62 (79) 99 04/19/17 21:00 98.9 71 18 127/71 (89) 100 04/19/17 20:00 80 15 121/69 (86) 100 04/19/17 17:49 74 20 140/88 (105) 100 Room Air 04/19/17 13:26 (93) Room Air 04/19/17 13:21 64 18 100 Room Air 04/19/17 13:21 67 18 129/75 (93) 100 04/19/17 11:52 97.5 65 12 112/69 (83) 98 I/O 04/19/17 04/19/17 04/19/17 04/20/17 04/20/17 04/20/17 07:00 15:00 23:00 07:00 15:00 23:00 Intake Total 1000 ml 240 ml 0 ml Output Total 300 ml Balance 1000 ml 240 ml -300 ml Intake Oral 240 ml 0 ml IV Total 1000 ml Output Urine Total 300 ml # Bowel Movements 0 Result Diagram: 04/19/17 1340 04/19/17 1340 Imaging Last Impressions Knee MRI 04/19/17 1409 Signed Impressions: Service Date/Time: Wednesday, April 19, 2017 14:57 - CONCLUSION: 1. Oblique fracture of the medial tibial plateau with slight depression. The fracture line extends across midline and involves the anterior tibial spines and anterior medial tibial plateau. 2. Minimal fracture of the anterior medial femoral condyle. 3. Tearing of both medial lateral menisci. 4. Avulsion fracture of the fibular head. 5. Extensive tearing of the lateral collateral ligament. Talat Burkett MD Chest X-Ray 04/19/17 1323 Signed Impressions: Service Date/Time: Wednesday, April 19, 2017 13:55 - CONCLUSION: No acute cardiopulmonary process. Brian Kyle MD Knee X-Ray 04/19/17 1201 Signed Impressions: Service Date/Time: Wednesday, April 19, 2017 12:53 - CONCLUSION: Hemarthrosis. Depressed fracture medial tibial plateau. Fracture posterior lateral tibia which is distracted. No evidence dislocation. Ulises Culver MD Orbit X-Ray 04/19/17 0000 Signed Impressions: Service Date/Time: Wednesday, April 19, 2017 14:38 - CONCLUSION: Cleared for MRI. Negative for metallic radiopaque foreign body Ulises Culver MD Lower Extremity CT 04/19/17 0000 Signed Impressions: Service Date/Time: Wednesday, April 19, 2017 15:40 - CONCLUSION: 1. Fracture of the medial tibial plateau extending into the midline involving anterior tibial spine. Slight depression. 2. Avulsion fracture small portion of the fibular head. 3. Minimal fracture of the anterior lateral tibial plateau and anterior medial femoral condyle. Talat Burkett MD Aorta w/Runoff CTA 04/19/17 0000 Signed Impressions: Service Date/Time: Wednesday, April 19, 2017 15:40 - CONCLUSION: 1. Comminuted tibial plateau fracture medially on the left. 2. 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 3. Otherwise, inflow and outflow vasculature is patent bilaterally. Brian Kyle MD Procedures None Other Results Laboratory Tests Test 04/19/17 13:40 White Blood Count 17.5 TH/MM3 Red Blood Count 5.42 MIL/MM3 Hemoglobin 15.4 GM/DL Hematocrit 47.3 % Mean Corpuscular Volume 87.3 FL Mean Corpuscular Hemoglobin 28.5 PG Mean Corpuscular Hemoglobin Concent 32.6 % Red Cell Distribution Width 12.9 % Platelet Count 189 TH/MM3 Mean Platelet Volume 8.9 FL Neutrophils (%) (Auto) 85.6 % Lymphocytes (%) (Auto) 7.1 % Monocytes (%) (Auto) 6.5 % Eosinophils (%) (Auto) 0.5 % Basophils (%) (Auto) 0.3 % Neutrophils # (Auto) 15.0 TH/MM3 Lymphocytes # (Auto) 1.2 TH/MM3 Monocytes # (Auto) 1.1 TH/MM3 Eosinophils # (Auto) 0.1 TH/MM3 Basophils # (Auto) 0.0 TH/MM3 CBC Comment DIFF FINAL Differential Comment Prothrombin Time 11.6 SEC Prothromb Time International Ratio 1.0 RATIO Activated Partial Thromboplast Time 22.8 SEC Blood Urea Nitrogen 14 MG/DL Creatinine 1.15 MG/DL Random Glucose 99 MG/DL Calcium Level 8.8 MG/DL Magnesium Level 2.4 MG/DL Sodium Level 142 MEQ/L Potassium Level 3.8 MEQ/L Chloride Level 108 MEQ/L Carbon Dioxide Level 28.2 MEQ/L Anion Gap 6 MEQ/L Estimat Glomerular Filtration Rate 75 ML/MIN Objective Remarks GENERAL: Well developed in no acute distress. SKIN: Warm and dry. HEAD: Atraumatic. Normocephalic. EYES: Pupils equal and round. No scleral icterus. No injection or drainage. ENT: No nasal bleeding or discharge. Mucous membranes pink and moist. Tongue is midline. No uvula deviation. NECK: Trachea midline. No JVD. CARDIOVASCULAR: Regular rate and rhythm. No murmurs, S3, S4. RESPIRATORY: No accessory muscle use. Clear to auscultation. Breath sounds equal bilaterally. GASTROINTESTINAL: Abdomen soft, non-tender, nondistended. Hepatic and splenic margins not palpable. MUSCULOSKELETAL: Patient does have obvious deformity to the left knee with what appears to be slight subluxation of the lateral aspect of the tibia and fibula. NEUROLOGICAL: Awake and alert. No obvious cranial nerve deficits. Motor grossly within normal limits. Five out of 5 muscle strength in the arms and legs. Normal speech. PSYCHIATRIC: Appropriate mood and affect; insight and judgment normal. Medications and IVs Current Medications Medications (Trade) Dose Ordered Sig/Rico Route Start Time Stop Time Status Last Admin Sodium Chloride 1,000 ml @ 100 mls/hr Q10H IV 04/19/17 18:00 04/20/17 04:00 (NS Flush) 2 ml UNSCH PRN IV FLUSH 04/19/17 17:00 (NS Flush) 2 ml BID IV FLUSH 04/19/17 21:00 (Tylenol) 650 mg Q4H PRN PO 04/19/17 17:00 04/19/17 18:16 (Zofran Inj) 4 mg Q6H PRN IVP 04/19/17 17:00 (Narcan Inj) 0.4 mg UNSCH PRN IV PUSH 04/19/17 17:00 (Dayanara-Colace) 1 tab BID PO 04/19/17 21:00 04/19/17 21:36 (Milk Of Magnesia Liq) 30 ml Q12H PRN PO 04/19/17 17:00 (Senokot) 17.2 mg Q12H PRN PO 04/19/17 17:00 (Dulcolax Supp) 10 mg DAILY PRN RECTAL 04/19/17 17:00 (Lactulose Liq) 30 ml DAILY PRN PO 04/19/17 17:00 (Tylenol) 650 mg Q4H PRN PO 04/19/17 17:30 (Habitrol 21 Mg Patch.24 Hr) 1 patch DAILY T-DERMAL 04/19/17 18:15 04/19/17 18:25 Miscellaneous Information 1 DAILY T-DERMAL 04/20/17 09:00 (Heparin Inj) 5,000 units Q12HR SQ 04/19/17 21:00 04/19/17 21:37 ([place] 5-325 Mg) 1 tab Q4H PRN PO 04/19/17 21:00 ([place] 7.5-325 Mg) 1 tab Q4H PRN PO 04/19/17 21:00 04/20/17 07:46 (Flu (Quadrivalent) Vaccine Inj) 0.5 ml ONCE ONCE IM 04/20/17 10:00 04/20/17 10:01 Lactated Ringer's 1,000 ml @ 30 mls/hr Q24H PRN IV 04/20/17 05:45 04/23/17 05:44 Sodium Chloride 500 ml @ 30 mls/hr [id number] PRN IV 04/20/17 05:45 04/23/17 05:44 (Betadine 5% Antisepsis Kit) 1 applic SORT LINE WORKER PRN EACH NARE 04/20/17 05:45 04/23/17 05:44 (Chlorhexidine 2% Cloth) 3 pack SORT LINE WORKER PRN TOPICAL 04/20/17 05:45 04/23/17 05:44 (NovoLIN R INJ) See Protocol Table ... SORT LINE WORKER PRN SQ 04/20/17 05:45 04/23/17 05:44 A/P Assessment and Plan 1. Left Tibial Plateau Fracture with Displaced bicondylar fracture of left tibia, initial encounter for closed fracture seen in the presence of Doctor Giovanni Yao asked to keep the patient Hospitalized until next 04/22/17 and he will have procedure performed that day, for now to continue Canvas split, 2. Tobacco dependence strongly recommended to stop smoking, Nicotine patch started 3. Marijuana abuse strongly recommended to stop behavior. DVT prophylaxis with Lovenox if surgery not planned now Code Status Full Code Discussed Condition With Jose Francisco Hargrove Patient and his Girlfriend Miss Lissette Kang, all questions answered to the best of my abilities as per Doctor Yao the procedure will be performed with another specialist for next Saturday04/22/17 due to the complexity of the trauma. and needs reconstruction. Discharge Planning Once cleared by Orthopedic Surgery Mal Campbell MD Apr 20, 2017 08:33
[2017-04-20] MEDS: DOCUSATE SODIUM 50 MG/SENNA 8.6 MG TAB PO SCH ×2 (09:00→21:07)
[2017-04-20] MEDS: REMOVE OLD PATCH T-DERMAL SCH (09:00)
[2017-04-20] MEDS: SODIUM CHLORIDE 0.9% FLUSH 10 ML FLUSH IV FLUSH SCH ×2 (09:00→21:00)
[2017-04-20] MEDS: HEPARIN SODIUM - SQ 10,000 UNITS/ML VIAL SQ SCH ×2 (09:00→21:07)
[2017-04-20] MEDS: NICOTINE 21 MG/24 HR PATCH T-DERMAL SCH (09:23)
[2017-04-20] MEDS ORDERED: INFLUENZA VIRUS VACCINE (QUADRIVALENT) 0.5 ML SYR IM ONE (10:00)
[2017-04-20 12:00] VITALS: BP 140/79; PULSE 64; RESP 18; TEMP 98; O2SAT 100
[2017-04-20 16:00] VITALS: BP_SYST 110; BP_SYST 133; BP_DIAS 67; BP_DIAS 77; PULSE 70; RESP 16; RESP 18; TEMP 97.5; TEMP 98.5; O2SAT 96; O2SAT 99
--- NOTE | 2017-04-20 16:45 | EKG ---
Date Performed: 04/19/2017 Time Performed: 13:36:47 PTAGE: 31 years EKG: Sinus rhythm WITH SINUS ARRHYTHMIA POSSIBLE RIGHT VENTRICULAR CONDUCTION DELAY BORDERLINE ECG NO PREVIOUS TRACING DOCTOR: Donald Johnson Interpretating Date/Time 04/20/2017 16:43:34
--- NOTE | 2017-04-20 16:53 | PD.ORT.PN ---
Subjective Subjective Remarks Patient resting in bed with mild to moderate left knee pain. Family/friend at bedside. Objective Vitals Vital Signs Date Time Temp Pulse Resp B/P (MAP) Pulse Ox O2 Delivery O2 Flow Rate FiO2 04/20/17 12:00 98.0 64 18 140/79 (99) 100 04/20/17 08:00 97.0 68 18 130/75 (93) 100 04/20/17 04:06 98.5 74 18 132/76 (94) 99 04/20/17 00:20 97.8 70 18 113/62 (79) 99 04/19/17 21:00 98.9 71 18 127/71 (89) 100 04/19/17 20:00 80 15 121/69 (86) 100 04/19/17 17:49 74 20 140/88 (105) 100 Room Air I/O 04/19/17 04/19/17 04/19/17 04/20/17 04/20/17 04/20/17 07:00 15:00 23:00 07:00 15:00 23:00 Intake Total 1000 ml 240 ml 0 ml Output Total 300 ml Balance 1000 ml 240 ml -300 ml Intake Oral 240 ml 0 ml IV Total 1000 ml Output Urine Total 300 ml # Bowel Movements 0 Result Diagram: 04/19/17 1340 04/19/17 1340 Objective Remarks Patient's knee immobilizer is in place. Patient has no calf tenderness or swelling. + NVI. + SILT. Moderate swelling to the left knee. Assessment & Plan Assessment and Plan 1. Left medial tibial plateau fracture, comminuted. 2. Left lateral collateral ligament injury with fracture of the head of the fibula. 3. Medial and lateral meniscal tears. 4. Possible posterior cruciate ligament injury. 5. Chronic tobacco use. Plan is for Dr. Monte to see patient on Saturday at which time he will determine how and when to proceed with surgical management for the left knee. Patient will remain NWB on the LLE Patient should wear his knee immobilizer at all times. Patient currently on Heparin for DVT prophylaxis Los Lynch Apr 20, 2017 16:53
[2017-04-20 20:22] VITALS: BP 142/87; PULSE 65; RESP 17; TEMP 98.9; O2SAT 100
[2017-04-21 00:14] VITALS: BP 130/66; PULSE 66; RESP 17; TEMP 98.5; O2SAT 100
[2017-04-21] MEDS: ACETAMINOPHEN/HYDROcodone 325 MG/7.5 MG TAB PO PRN ×4 (06:43→21:17)
[2017-04-21 08:00] VITALS: BP 151/72; PULSE 81; RESP 18; TEMP 98.6; O2SAT 99
[2017-04-21] MEDS: SODIUM CHLORIDE 0.9% FLUSH 10 ML FLUSH IV FLUSH SCH ×2 (09:00→21:00)
[2017-04-21] MEDS: REMOVE OLD PATCH T-DERMAL SCH (09:00)
[2017-04-21] MEDS: HEPARIN SODIUM - SQ 10,000 UNITS/ML VIAL SQ SCH (09:52)
[2017-04-21] MEDS: NICOTINE 21 MG/24 HR PATCH T-DERMAL SCH (09:52)
[2017-04-21] MEDS: DOCUSATE SODIUM 50 MG/SENNA 8.6 MG TAB PO SCH ×2 (09:53→21:17)
[2017-04-21] MEDS: SODIUM CHLOR 0.9% 1000 ML INJ 1,000 ML IV SCH ×2 (10:10→17:23)
--- NOTE | 2017-04-21 10:41 | HHI.PR ---
Subjective Remarks This is a pleasant 31 y/o with status post fall from a Ladder, after he lost his balance, Per patient he landed on his left knee. Patient has pain only to his left knee. He denies any other injury. States sign mild numbness around the area of the knee. Patient does have deformity that is obvious on exam on the left knee. No ankle , foot, hip pain noted. No back or neck pain. No head injury or loss of consciousness. Fall was witnessed by family members who attests to the kind of fall he had. Patient takes no medications. No prior injuries to this knee. Patient states that his pain is 10 out of 10. He is able to move the toes and the ankle. No obvious discoloration of the ankle. Patient does have a hematoma noted on the left knee. No allergies to medication. No other injuries noted. Seen in his bedroom in the presence of nurse and his Girlfriend miss Lissette Kang, Doctor Najma in to see the patient his plan is to keep the patient hospitalized because he will need a reconstruction of the knee. will be performed next Saturday04/22/1704/20: seen in his bedroom in the presence of his , and Daughter, awaiting for surgery for 04/22/17. 04/21: Stable in his bedroom, discussed with nurse Miss Granados, no nausea, vomit or diarrhea. Objective Vital Signs Date Time Temp Pulse Resp B/P (MAP) Pulse Ox O2 Delivery O2 Flow Rate FiO2 04/21/17 08:00 98.6 81 18 151/72 (98) 99 04/21/17 00:14 98.5 66 17 130/66 (87) 100 04/20/17 20:22 98.9 65 17 142/87 (105) 100 04/20/17 16:00 98.5 70 16 133/77 (95) 99 04/20/17 12:00 98.0 64 18 140/79 (99) 100 I/O 04/20/17 04/20/17 04/20/17 04/21/17 04/21/17 04/21/17 07:00 15:00 23:00 07:00 15:00 23:00 Intake Total 0 ml 480 ml 360 ml 0 ml Output Total 300 ml 500 ml 600 ml Balance -300 ml 480 ml -140 ml -600 ml Intake Oral 0 ml 480 ml 360 ml 0 ml Output Urine Total 300 ml 500 ml 600 ml # Voids 3 # Bowel Movements 0 0 0 Result Diagram: 04/19/17 1340 04/19/17 1340 Imaging Last Impressions Knee MRI 04/19/17 1409 Signed Impressions: Service Date/Time: Wednesday, April 19, 2017 14:57 - CONCLUSION: 1. Oblique fracture of the medial tibial plateau with slight depression. The fracture line extends across midline and involves the anterior tibial spines and anterior medial tibial plateau. 2. Minimal fracture of the anterior medial femoral condyle. 3. Tearing of both medial lateral menisci. 4. Avulsion fracture of the fibular head. 5. Extensive tearing of the lateral collateral ligament. Talat Burkett MD Chest X-Ray 04/19/17 1323 Signed Impressions: Service Date/Time: Wednesday, April 19, 2017 13:55 - CONCLUSION: No acute cardiopulmonary process. Brian Kyle MD Knee X-Ray 04/19/17 1201 Signed Impressions: Service Date/Time: Wednesday, April 19, 2017 12:53 - CONCLUSION: Hemarthrosis. Depressed fracture medial tibial plateau. Fracture posterior lateral tibia which is distracted. No evidence dislocation. Ulises Culver MD Orbit X-Ray 04/19/17 0000 Signed Impressions: Service Date/Time: Wednesday, April 19, 2017 14:38 - CONCLUSION: Cleared for MRI. Negative for metallic radiopaque foreign body Ulises Culvre MD Lower Extremity CT 04/19/17 0000 Signed Impressions: Service Date/Time: Wednesday, April 19, 2017 15:40 - CONCLUSION: 1. Fracture of the medial tibial plateau extending into the midline involving anterior tibial spine. Slight depression. 2. Avulsion fracture small portion of the fibular head. 3. Minimal fracture of the anterior lateral tibial plateau and anterior medial femoral condyle. Talat Burkett MD Aorta w/Runoff CTA 04/19/17 0000 Signed Impressions: Service Date/Time: Wednesday, April 19, 2017 15:40 - CONCLUSION: 1. Comminuted tibial plateau fracture medially on the left. 2. 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 3. Otherwise, inflow and outflow vasculature is patent bilaterally. Brian Kyle MD Procedures None Other Results Laboratory Tests Test 04/19/17 13:40 9/23/17 15:20 White Blood Count 17.5 TH/MM3 Red Blood Count 5.42 MIL/MM3 Hemoglobin 15.4 GM/DL Hematocrit 47.3 % Mean Corpuscular Volume 87.3 FL Mean Corpuscular Hemoglobin 28.5 PG Mean Corpuscular Hemoglobin Concent 32.6 % Red Cell Distribution Width 12.9 % Platelet Count 189 TH/MM3 Mean Platelet Volume 8.9 FL Neutrophils (%) (Auto) 85.6 % Lymphocytes (%) (Auto) 7.1 % Monocytes (%) (Auto) 6.5 % Eosinophils (%) (Auto) 0.5 % Basophils (%) (Auto) 0.3 % Neutrophils # (Auto) 15.0 TH/MM3 Lymphocytes # (Auto) 1.2 TH/MM3 Monocytes # (Auto) 1.1 TH/MM3 Eosinophils # (Auto) 0.1 TH/MM3 Basophils # (Auto) 0.0 TH/MM3 CBC Comment DIFF FINAL Differential Comment Prothrombin Time 11.6 SEC Prothromb Time International Ratio 1.0 RATIO Activated Partial Thromboplast Time 22.8 SEC Blood Urea Nitrogen 14 MG/DL Creatinine 1.15 MG/DL Random Glucose 99 MG/DL Calcium Level 8.8 MG/DL Magnesium Level 2.4 MG/DL Sodium Level 142 MEQ/L Potassium Level 3.8 MEQ/L Chloride Level 108 MEQ/L Carbon Dioxide Level 28.2 MEQ/L Anion Gap 6 MEQ/L Estimat Glomerular Filtration Rate 75 ML/MIN Nasal Screen MRSA (PCR) MRSA NOT DETECTED Objective Remarks GENERAL: Well developed in no acute distress. SKIN: Warm and dry. HEAD: Atraumatic. Normocephalic. EYES: Pupils equal and round. No scleral icterus. No injection or drainage. ENT: No nasal bleeding or discharge. Mucous membranes pink and moist. Tongue is midline. No uvula deviation. NECK: Trachea midline. No JVD. CARDIOVASCULAR: Regular rate and rhythm. No murmurs, S3, S4. RESPIRATORY: No accessory muscle use. Clear to auscultation. Breath sounds equal bilaterally. GASTROINTESTINAL: Abdomen soft, non-tender, nondistended. Hepatic and splenic margins not palpable. MUSCULOSKELETAL: Patient does have obvious deformity to the left knee with what appears to be slight subluxation of the lateral aspect of the tibia and fibula. NEUROLOGICAL: Awake and alert. No obvious cranial nerve deficits. Motor grossly within normal limits. Five out of 5 muscle strength in the arms and legs. Normal speech. PSYCHIATRIC: Appropriate mood and affect; insight and judgment normal. Medications and IVs Current Medications Medications (Trade) Dose Ordered Sig/Rico Route Start Time Stop Time Status Last Admin Sodium Chloride 1,000 ml @ 100 mls/hr Q10H IV 04/19/17 18:00 04/21/17 10:10 (NS Flush) 2 ml UNSCH PRN IV FLUSH 04/19/17 17:00 (NS Flush) 2 ml BID IV FLUSH 04/19/17 21:00 (Tylenol) 650 mg Q4H PRN PO 04/19/17 17:00 04/19/17 18:16 (Zofran Inj) 4 mg Q6H PRN IVP 04/19/17 17:00 (Narcan Inj) 0.4 mg UNSCH PRN IV PUSH 04/19/17 17:00 (Dayanara-Colace) 1 tab BID PO 04/19/17 21:00 04/21/17 09:53 (Milk Of Magnesia Liq) 30 ml Q12H PRN PO 04/19/17 17:00 (Senokot) 17.2 mg Q12H PRN PO 04/19/17 17:00 (Dulcolax Supp) 10 mg DAILY PRN RECTAL 04/19/17 17:00 (Lactulose Liq) 30 ml DAILY PRN PO 04/19/17 17:00 (Tylenol) 650 mg Q4H PRN PO 04/19/17 17:30 (Habitrol 21 Mg Patch.24 Hr) 1 patch DAILY T-DERMAL 04/19/17 18:15 04/21/17 09:52 Miscellaneous Information 1 DAILY T-DERMAL 04/20/17 09:00 04/21/17 09:00 (Heparin Inj) 5,000 units Q12HR SQ 04/19/17 21:00 04/21/17 09:52 ([place] 5-325 Mg) 1 tab Q4H PRN PO 04/19/17 21:00 ([place] 7.5-325 Mg) 1 tab Q4H PRN PO 04/19/17 21:00 04/21/17 06:43 Lactated Ringer's 1,000 ml @ 30 mls/hr Q24H PRN IV 04/20/17 05:45 04/23/17 05:44 Sodium Chloride 500 ml @ 30 mls/hr [id number] PRN IV 04/20/17 05:45 04/23/17 05:44 (Betadine 5% Antisepsis Kit) 1 applic CLINICAL PHLEBOTOMIST PRN EACH NARE 04/20/17 05:45 04/23/17 05:44 (Chlorhexidine 2% Cloth) 3 pack CLINICAL PHLEBOTOMIST PRN TOPICAL 04/20/17 05:45 04/23/17 05:44 (NovoLIN R INJ) See Protocol Table ... CLINICAL PHLEBOTOMIST PRN SQ 04/20/17 05:45 04/23/17 05:44 A/P Assessment and Plan 1. Left Tibial Plateau Fracture with Displaced bicondylar fracture of left tibia, initial encounter for closed fracture seen in the presence of Doctor Giovanni Yao asked to keep the patient Hospitalized until next 04/22/17 and he will have procedure performed that day, for now to continue Canvas split, 2. Tobacco dependence strongly recommended to stop smoking, Nicotine patch started 3. Marijuana abuse strongly recommended to stop behavior. DVT prophylaxis with Lovenox if surgery not planned now Code Status Full Code Discussed Condition With Jose Francisco Hargrove Patient and his Girlfriend Miss Lissette Kang, all questions answered to the best of my abilities as per Doctor Yao the procedure will be performed with another specialist for next Saturday04/22/17 due to the complexity of the trauma. and needs reconstruction. Discharge Planning Once cleared by Orthopedic Surgery Mal Campbell MD Apr 21, 2017 10:41
[2017-04-21 12:00] VITALS: BP 136/74; PULSE 72; RESP 18; TEMP 98; O2SAT 99
--- NOTE | 2017-04-21 12:59 | PD.ORT.PN ---
Subjective Subjective Remarks Patient resting in bed with mild left knee pain. Family/friend at bedside. Objective Vitals Vital Signs Date Time Temp Pulse Resp B/P (MAP) Pulse Ox O2 Delivery O2 Flow Rate FiO2 04/21/17 08:00 98.6 81 18 151/72 (98) 99 04/21/17 00:14 98.5 66 17 130/66 (87) 100 04/20/17 20:22 98.9 65 17 142/87 (105) 100 04/20/17 16:00 98.5 70 16 133/77 (95) 99 I/O 04/20/17 04/20/17 04/20/17 04/21/17 04/21/17 04/21/17 07:00 15:00 23:00 07:00 15:00 23:00 Intake Total 0 ml 480 ml 360 ml 0 ml Output Total 300 ml 500 ml 600 ml Balance -300 ml 480 ml -140 ml -600 ml Intake Oral 0 ml 480 ml 360 ml 0 ml Output Urine Total 300 ml 500 ml 600 ml # Voids 3 # Bowel Movements 0 0 0 Result Diagram: 04/19/17 1340 04/19/17 1340 Objective Remarks Patient's knee immobilizer is in place. Patient has no calf tenderness or swelling. + NVI. + SILT. Mild swelling to the left knee. Assessment & Plan Assessment and Plan 1. Left medial tibial plateau fracture, comminuted. 2. Left lateral collateral ligament injury with fracture of the head of the fibula. 3. Medial and lateral meniscal tears. 4. Possible posterior cruciate ligament injury. 5. Chronic tobacco use. Plan is for Dr. Monte to see patient on Saturday at which time he will determine how and when to proceed with surgical management for the left knee. Patient will remain NWB on the LLE Patient should wear his knee immobilizer at all times. Will stop Heparin dose this afternoon and tomorrow. [place] Lynch Apr 21, 2017 12:59
[2017-04-21 16:00] VITALS: BP 135/69; PULSE 71; RESP 19; TEMP 97.9; O2SAT 100
[2017-04-21 19:39] VITALS: BP 141/68; PULSE 65; RESP 18; TEMP 96.8; O2SAT 99
[2017-04-22 00:24] VITALS: BP 112/56; PULSE 65; RESP 18; TEMP 97.4; O2SAT 100
[2017-04-22] MEDS: SODIUM CHLOR 0.9% 1000 ML INJ 1,000 ML IV SCH ×2 (02:51→16:00)
[2017-04-22] MEDS: ACETAMINOPHEN/HYDROcodone 325 MG/7.5 MG TAB PO PRN ×3 (03:46→23:21)
[2017-04-22 03:49] VITALS: BP 116/58; PULSE 67; RESP 18; TEMP 98.4; O2SAT 100
--- NOTE | 2017-04-22 06:39 | PD.ORT.PN ---
Subjective Subjective Remarks s/p fall off ladder on saturday left tibial plateau fx and left LCL injury resting comfortably. no complaints Objective Vitals Vital Signs Date Time Temp Pulse Resp B/P (MAP) Pulse Ox O2 Delivery O2 Flow Rate FiO2 04/22/17 03:49 98.4 67 18 116/58 (77) 100 04/22/17 00:24 97.4 65 18 112/56 (74) 100 04/21/17 19:39 96.8 65 18 141/68 (92) 99 04/21/17 16:00 97.9 71 19 135/69 (91) 100 04/21/17 12:00 98.0 72 18 136/74 (94) 99 04/21/17 08:00 98.6 81 18 151/72 (98) 99 I/O 04/21/17 04/21/17 04/21/17 04/22/17 04/22/17 04/22/17 07:00 15:00 23:00 07:00 15:00 23:00 Intake Total 0 ml 1440 ml 2286 ml 0 ml Output Total 600 ml Balance -600 ml 1440 ml 2286 ml 0 ml Intake Oral 0 ml 1440 ml 480 ml 0 ml IV Total 1806 ml Output Urine Total 600 ml # Voids 5 5 4 # Bowel Movements 0 0 0 Result Diagram: 04/19/17 1340 04/19/17 1340 Objective Remarks LLE: +CKS. 3+ swelling of knee. NVI distally with neg ling. Assessment & Plan Assessment and Plan 1. Left medial tibial plateau fracture, comminuted. 2. Left lateral collateral ligament injury with fracture of the head of the fibula. 3. Medial and lateral meniscal tears. 4. Possible posterior cruciate ligament injury. 5. Chronic tobacco use. -swelling too great at this point -ice cuff and ice bags -elevate -toradol 30mg Q6Hrs x 6 doses -resume diet -plan for surgery when swelling improved. potentially later this week Maynor Last Apr 22, 2017 06:39
[2017-04-22] MEDS ORDERED: INSULIN HUMAN REGULAR 1,000 UNITS/10 ML VIAL SQ PRN (07:30)
[2017-04-22] MEDS ORDERED: CHLORHEXIDINE GLUCONATE 2 % 1 PACK (2 CLOTHS) TOPICAL PRN (07:30)
[2017-04-22] MEDS ORDERED: POVIDONE IODINE 5% (ANTISEPSIS KIT) 4 APPLICATIONS EACH NARE PRN (07:30)
[2017-04-22] MEDS ORDERED: LACTATED RINGER'S 1000 ML IV PRN (07:30)
[2017-04-22] MEDS ORDERED: SODIUM CHLORID 0.9% 500 ML IV PRN (07:30)
[2017-04-22 08:00] VITALS: BP 120/72; PULSE 67; RESP 18; TEMP 97.6; O2SAT 100
[2017-04-22] MEDS: SODIUM CHLORIDE 0.9% FLUSH 10 ML FLUSH IV FLUSH SCH ×2 (09:00→20:20)
[2017-04-22] MEDS: REMOVE OLD PATCH T-DERMAL SCH (09:00)
[2017-04-22] MEDS: DOCUSATE SODIUM 50 MG/SENNA 8.6 MG TAB PO SCH ×2 (09:18→20:21)
[2017-04-22] MEDS: NICOTINE 21 MG/24 HR PATCH T-DERMAL SCH (09:20)
[2017-04-22] MEDS: KETOROLAC TROMETHAMINE 30 MG/ML (IVP) VIAL IV PUSH SCH ×4 (09:22→23:21)
--- NOTE | 2017-04-22 11:58 | HHI.PR ---
Subjective Remarks Follow-up for tibial fracture He stated pain is controlled. He is very anxious have surgery so he can go home. Otherwise no other complaints. d/w patient's nurse Objective Vitals Vital Signs Date Time Temp Pulse Resp B/P (MAP) Pulse Ox O2 Delivery O2 Flow Rate FiO2 04/22/17 10:25 16 04/22/17 08:00 97.6 67 18 120/72 (88) 100 04/22/17 03:49 98.4 67 18 116/58 (77) 100 04/22/17 00:24 97.4 65 18 112/56 (74) 100 04/21/17 19:39 96.8 65 18 141/68 (92) 99 04/21/17 16:00 97.9 71 19 135/69 (91) 100 04/21/17 12:00 98.0 72 18 136/74 (94) 99 I/O 04/21/17 04/21/17 04/21/17 04/22/17 04/22/17 04/22/17 07:00 15:00 23:00 07:00 15:00 23:00 Intake Total 0 ml 1440 ml 2286 ml 0 ml Output Total 600 ml Balance -600 ml 1440 ml 2286 ml 0 ml Intake Oral 0 ml 1440 ml 480 ml 0 ml IV Total 1806 ml Output Urine Total 600 ml # Voids 5 5 4 # Bowel Movements 0 0 0 Result Diagram: 04/19/17 1340 04/19/17 1340 Objective Remarks GENERAL: in NAD CARDIOVASCULAR: Regular rate and rhythm without murmurs, gallops, or rubs. RESPIRATORY: Breath sounds equal bilaterally. No accessory muscle use. GASTROINTESTINAL: Abdomen soft, non-tender, nondistended. MUSCULOSKELETAL:left knee + swelling. No erythema noted. Range of motion limited secondary to pain. BACK: Nontender without obvious deformity. No CVA tenderness. Medications and IVs Current Medications Morphine Sulfate (Morphine Inj) 4 mg ONCE ONCE IV PUSH Last administered on 13:54; Start 04/19/17 at 13:30; Stop 04/19/17 at 13:31; Status DC Ondansetron HCl (Zofran Inj) 4 mg ONCE ONCE IV PUSH Last administered on 13:54; Start 04/19/17 at 13:30; Stop 04/19/17 at 13:31; Status DC Sodium Chloride 1,000 ml @ 1,000 mls/hr Q1H IV Last administered on 04/19/17 13:55; Start 04/19/17 at 13:27; Stop 04/19/17 at 14:26; Status DC Iohexol (Omnipaque 350 Inj) 96 ml STK-MED ONCE IVCONTRAST ; Start 04/19/17 at 16 :49; Stop 04/19/17 at 16:50; Status DC Sodium Chloride 1,000 ml @ 100 mls/hr Q10H IV Last administered on 04/21/17 17:23; Start 04/19/17 at 18:00 Sodium Chloride (NS Flush) 2 ml UNSCH PRN IV FLUSH FLUSH AFTER USING IV ACCESS ; Start 04/19/17 at 17:00 Sodium Chloride (NS Flush) 2 ml BID IV FLUSH ; Start 04/19/17 at 21:00 Acetaminophen (Tylenol) 650 mg Q4H PRN PO TEMP > 100.4 Last administered on 18:16; Start 04/19/17 at 17:00 Ondansetron HCl (Zofran Inj) 4 mg Q6H PRN IVP NAUSEA OR VOMITING; Start at 17:00 Naloxone HCl (Narcan Inj) 0.4 mg UNSCH PRN IV PUSH SEE LABEL COMMENTS; Start at 17:00 Senna/Docusate Sodium (Dayanara-Colace) 1 tab BID PO Last administered on 09:18; Start 04/19/17 at 21:00 Magnesium Hydroxide (Milk Of Magnesia Liq) 30 ml Q12H PRN PO MILD - MODERATE CONSTIPATION; Start 04/19/17 at 17:00 Sennosides (Senokot) 17.2 mg Q12H PRN PO MODERATE - SEVERE CONSTIPATION; Start 04/19/17 at 17:00 Bisacodyl (Dulcolax Supp) 10 mg DAILY PRN RECTAL SEVERE CONSITIPATION; Start at 17:00 Lactulose (Lactulose Liq) 30 ml DAILY PRN PO SEVERE CONSITIPATION; Start at 17:00 Acetaminophen (Tylenol) 650 mg Q4H PRN PO pain 1-2; Start 04/19/17 at 17:30 Nicotine (Habitrol 21 Mg Patch.24 Hr) 1 patch DAILY T-DERMAL Last administered on 04/22/17 09:20; Start 04/19/17 at 18:15 Miscellaneous Information 1 DAILY T-DERMAL Last administered on 04/22/17 09:00 ; Start 04/20/17 at 09:00 Heparin Sodium (Porcine) (Heparin Inj) 5,000 units Q12HR SQ Last administered on 04/21/17 09:52; Start 04/19/17 at 21:00; Stop 04/21/17 at 13:01; Status DC Acetaminophen/ Hydrocodone Bitart ([place] 5-325 Mg) 1 tab Q4H PRN PO PAIN 3 - 5 ; Start 04/19/17 at 21:00 Acetaminophen/ Hydrocodone Bitart ([place] 7.5-325 Mg) 1 tab Q4H PRN PO PAIN 6 - 10 Last administered on 04/22/17 03:46; Start 04/19/17 at 21:00 Influenza Virus Vaccine (Flu (Quadrivalent) Vaccine Inj) 0.5 ml ONCE ONCE IM Last administered on 04/20/17 10:00; Start 04/20/17 at 10:00; Stop 04/20/17 at 10:01; Status DC Lactated Ringer's 1,000 ml @ 30 mls/hr Q24H PRN IV SEE LABEL COMMENTS; Start at 05:45; Stop 04/21/17 at 22:30; Status DC Sodium Chloride 500 ml @ 30 mls/hr [id number] PRN IV SEE LABEL COMMENTS; Start at 05:45; Stop 04/21/17 at 22:29; Status DC Povidone Iodine (Betadine 5% Antisepsis Kit) 1 applic PLASTERER STUCCO PRN EACH NARE SEE LABEL COMMENTS; Start 04/20/17 at 05:45; Stop 04/21/17 at 22:31; Status DC Chlorhexidine Gluconate (Chlorhexidine 2% Cloth) 3 pack PLASTERER STUCCO PRN TOPICAL SEE LABEL COMMENTS; Start 04/20/17 at 05:45; Stop 04/21/17 at 22:31; Status DC Insulin Human Regular (NovoLIN R INJ) See Protocol Table ... PLASTERER STUCCO PRN SQ SEE PROTOCOL TABLE; Start 04/20/17 at 05:45; Stop 04/21/17 at 22:32; Status DC Lactated Ringer's 1,000 ml @ 30 mls/hr Q24H PRN IV SEE LABEL COMMENTS; Start at 07:30; Stop 04/23/17 at 07:29 Sodium Chloride 500 ml @ 30 mls/hr [id number] PRN IV SEE LABEL COMMENTS; Start at 07:30; Stop 04/23/17 at 07:29 Povidone Iodine (Betadine 5% Antisepsis Kit) 1 applic PLASTERER STUCCO PRN EACH NARE SEE LABEL COMMENTS; Start 04/22/17 at 07:30; Stop 04/23/17 at 07:29 Chlorhexidine Gluconate (Chlorhexidine 2% Cloth) 3 pack PLASTERER STUCCO PRN TOPICAL SEE LABEL COMMENTS; Start 04/22/17 at 07:30; Stop 04/23/17 at 07:29 Insulin Human Regular (NovoLIN R INJ) See Protocol Table ... PLASTERER STUCCO PRN SQ SEE PROTOCOL TABLE; Start 04/22/17 at 07:30; Stop 04/23/17 at 07:29 Ketorolac Tromethamine (Toradol Inj) 30 mg Q6HR IV PUSH Last administered on t 09:22; Start 04/22/17 at 06:45; Stop 04/23/17 at 12:01 A/P Assessment and Plan Left Tibial Plateau Fracture with Displaced bicondylar fracture of left tibia, initial encounter for closed fracture -Unable to do surgery at the moment secondary to swelling. Once swelling has improved patient be scheduled for surgery. -Continue with elevating leg and ice as needed. Tobacco dependence -strongly recommended to stop smoking, Nicotine patch started Marijuana abuse -Education given. DVT prophylaxis per orthopedic surgeon. Discharge Planning Due to swelling surgery most likely will be later this week. Yanira Moctezuma MD Apr 22, 2017 11:58
[2017-04-22 12:00] VITALS: BP 125/78; PULSE 72; RESP 19; TEMP 97.6; O2SAT 100
[2017-04-22 16:00] VITALS: BP 144/88; PULSE 72; RESP 18; TEMP 98.8; O2SAT 100
[2017-04-22 20:26] VITALS: BP 142/76; PULSE 70; RESP 18; TEMP 98.1; O2SAT 99
[2017-04-23] VITALS (7 sets, daily range): BP systolic 112–153; BP diastolic 62–90; PULSE 56–84; RESP 17–18; TEMP 96.5–98.7; O2SAT 97–100
[2017-04-23] MEDS: SODIUM CHLOR 0.9% 1000 ML INJ 1,000 ML IV SCH ×3 (00:10→20:10)
[2017-04-23] MEDS: ACETAMINOPHEN/HYDROcodone 325 MG/7.5 MG TAB PO PRN ×4 (03:42→23:31)
[2017-04-23] MEDS: KETOROLAC TROMETHAMINE 30 MG/ML (IVP) VIAL IV PUSH SCH ×2 (05:50→12:49)
[2017-04-23] MEDS: NICOTINE 21 MG/24 HR PATCH T-DERMAL SCH (08:56)
[2017-04-23] MEDS: REMOVE OLD PATCH T-DERMAL SCH (08:56)
[2017-04-23] MEDS: DOCUSATE SODIUM 50 MG/SENNA 8.6 MG TAB PO SCH ×2 (08:56→20:05)
[2017-04-23] MEDS: SODIUM CHLORIDE 0.9% FLUSH 10 ML FLUSH IV FLUSH SCH ×2 (08:57→20:05)
--- NOTE | 2017-04-23 10:32 | HHI.PR ---
Subjective Remarks Follow-up for knee fracture Patient has no complaints. He remained afebrile. He stated that Dr. Jacob saw him earlier today and wants swelling to improve before surgery. Objective Vitals Vital Signs Date Time Temp Pulse Resp B/P (MAP) Pulse Ox O2 Delivery O2 Flow Rate FiO2 04/23/17 08:00 97.1 74 17 117/74 (88) 100 04/23/17 04:31 96.5 57 18 112/62 (79) 100 04/23/17 00:14 98.4 56 18 152/85 (107) 100 04/22/17 20:26 98.1 70 18 142/76 (98) 99 04/22/17 16:00 98.8 72 18 144/88 (106) 100 04/22/17 14:30 16 04/22/17 12:00 97.6 72 19 125/78 (94) 100 I/O 04/22/17 04/22/17 04/22/17 04/23/17 04/23/17 04/23/17 07:00 15:00 23:00 07:00 15:00 23:00 Intake Total 0 ml 360 ml 0 ml Balance 0 ml 360 ml 0 ml Intake Oral 0 ml 360 ml 0 ml # Voids 4 3 0 0 # Bowel Movements 0 0 0 Result Diagram: 04/19/17 1340 04/19/17 1340 Objective Remarks GENERAL: in NAD CARDIOVASCULAR: Regular rate and rhythm without murmurs, gallops, or rubs. RESPIRATORY: Breath sounds equal bilaterally. No accessory muscle use. GASTROINTESTINAL: Abdomen soft, non-tender, nondistended. MUSCULOSKELETAL:left knee + swelling that has improved. No erythema noted. Range of motion limited secondary to pain. BACK: Nontender without obvious deformity. No CVA tenderness. Medications and IVs Current Medications Morphine Sulfate (Morphine Inj) 4 mg ONCE ONCE IV PUSH Last administered on 13:54; Start 04/19/17 at 13:30; Stop 04/19/17 at 13:31; Status DC Ondansetron HCl (Zofran Inj) 4 mg ONCE ONCE IV PUSH Last administered on 13:54; Start 04/19/17 at 13:30; Stop 04/19/17 at 13:31; Status DC Sodium Chloride 1,000 ml @ 1,000 mls/hr Q1H IV Last administered on 04/19/17 13:55; Start 04/19/17 at 13:27; Stop 04/19/17 at 14:26; Status DC Iohexol (Omnipaque 350 Inj) 96 ml STK-MED ONCE IVCONTRAST ; Start 04/19/17 at 16 :49; Stop 04/19/17 at 16:50; Status DC Sodium Chloride 1,000 ml @ 100 mls/hr Q10H IV Last administered on 04/21/17 17:23; Start 04/19/17 at 18:00 Sodium Chloride (NS Flush) 2 ml UNSCH PRN IV FLUSH FLUSH AFTER USING IV ACCESS ; Start 04/19/17 at 17:00 Sodium Chloride (NS Flush) 2 ml BID IV FLUSH Last administered on 04/23/17 08: 57; Start 04/19/17 at 21:00 Acetaminophen (Tylenol) 650 mg Q4H PRN PO TEMP > 100.4 Last administered on 18:16; Start 04/19/17 at 17:00 Ondansetron HCl (Zofran Inj) 4 mg Q6H PRN IVP NAUSEA OR VOMITING; Start at 17:00 Naloxone HCl (Narcan Inj) 0.4 mg UNSCH PRN IV PUSH SEE LABEL COMMENTS; Start at 17:00 Senna/Docusate Sodium (Dayanara-Colace) 1 tab BID PO Last administered on 08:56; Start 04/19/17 at 21:00 Magnesium Hydroxide (Milk Of Magnesia Liq) 30 ml Q12H PRN PO MILD - MODERATE CONSTIPATION Last administered on 04/23/17 08:56; Start 04/19/17 at 17:00 Sennosides (Senokot) 17.2 mg Q12H PRN PO MODERATE - SEVERE CONSTIPATION; Start 04/19/17 at 17:00 Bisacodyl (Dulcolax Supp) 10 mg DAILY PRN RECTAL SEVERE CONSITIPATION; Start at 17:00 Lactulose (Lactulose Liq) 30 ml DAILY PRN PO SEVERE CONSITIPATION; Start at 17:00 Acetaminophen (Tylenol) 650 mg Q4H PRN PO pain 1-2; Start 04/19/17 at 17:30 Nicotine (Habitrol 21 Mg Patch.24 Hr) 1 patch DAILY T-DERMAL Last administered on 04/23/17 08:56; Start 04/19/17 at 18:15 Miscellaneous Information 1 DAILY T-DERMAL Last administered on 04/23/17 08:56 ; Start 04/20/17 at 09:00 Heparin Sodium (Porcine) (Heparin Inj) 5,000 units Q12HR SQ Last administered on 04/21/17 09:52; Start 04/19/17 at 21:00; Stop 04/21/17 at 13:01; Status DC Acetaminophen/ Hydrocodone Bitart ([place] 5-325 Mg) 1 tab Q4H PRN PO PAIN 3 - 5 ; Start 04/19/17 at 21:00 Acetaminophen/ Hydrocodone Bitart ([place] 7.5-325 Mg) 1 tab Q4H PRN PO PAIN 6 - 10 Last administered on 04/23/17 09:01; Start 04/19/17 at 21:00 Influenza Virus Vaccine (Flu (Quadrivalent) Vaccine Inj) 0.5 ml ONCE ONCE IM Last administered on 04/20/17 10:00; Start 04/20/17 at 10:00; Stop 04/20/17 at 10:01; Status DC Lactated Ringer's 1,000 ml @ 30 mls/hr Q24H PRN IV SEE LABEL COMMENTS; Start at 05:45; Stop 04/21/17 at 22:30; Status DC Sodium Chloride 500 ml @ 30 mls/hr [id number] PRN IV SEE LABEL COMMENTS; Start at 05:45; Stop 04/21/17 at 22:29; Status DC Povidone Iodine (Betadine 5% Antisepsis Kit) 1 applic PUBLIC HEALTH SANITARIAN TECHNICIAN PRN EACH NARE SEE LABEL COMMENTS; Start 04/20/17 at 05:45; Stop 04/21/17 at 22:31; Status DC Chlorhexidine Gluconate (Chlorhexidine 2% Cloth) 3 pack PUBLIC HEALTH SANITARIAN TECHNICIAN PRN TOPICAL SEE LABEL COMMENTS; Start 04/20/17 at 05:45; Stop 04/21/17 at 22:31; Status DC Insulin Human Regular (NovoLIN R INJ) See Protocol Table ... PUBLIC HEALTH SANITARIAN TECHNICIAN PRN SQ SEE PROTOCOL TABLE; Start 04/20/17 at 05:45; Stop 04/21/17 at 22:32; Status DC Lactated Ringer's 1,000 ml @ 30 mls/hr Q24H PRN IV SEE LABEL COMMENTS; Start at 07:30; Stop 04/23/17 at 07:29; Status DC Sodium Chloride 500 ml @ 30 mls/hr [id number] PRN IV SEE LABEL COMMENTS; Start at 07:30; Stop 04/23/17 at 07:29; Status DC Povidone Iodine (Betadine 5% Antisepsis Kit) 1 applic PUBLIC HEALTH SANITARIAN TECHNICIAN PRN EACH NARE SEE LABEL COMMENTS; Start 04/22/17 at 07:30; Stop 04/23/17 at 07:29; Status DC Chlorhexidine Gluconate (Chlorhexidine 2% Cloth) 3 pack PUBLIC HEALTH SANITARIAN TECHNICIAN PRN TOPICAL SEE LABEL COMMENTS; Start 04/22/17 at 07:30; Stop 04/23/17 at 07:29; Status DC Insulin Human Regular (NovoLIN R INJ) See Protocol Table ... PUBLIC HEALTH SANITARIAN TECHNICIAN PRN SQ SEE PROTOCOL TABLE; Start 04/22/17 at 07:30; Stop 04/23/17 at 07:29; Status DC Ketorolac Tromethamine (Toradol Inj) 30 mg Q6HR IV PUSH Last administered on t 05:50; Start 04/22/17 at 06:45; Stop 04/23/17 at 12:01 A/P Assessment and Plan Left Tibial Plateau Fracture with Displaced bicondylar fracture of left tibia, initial encounter for closed fracture -Unable to do surgery at the moment secondary to swelling. Once swelling has improved patient be scheduled for surgery. -Continue with elevating leg and ice as needed. Tobacco dependence -strongly recommended to stop smoking, Nicotine patch started Marijuana abuse -Education given. DVT prophylaxis per orthopedic surgeon. Discharge Planning Due to swelling surgery most likely will be later this week. Yanira Moctezuma MD Apr 23, 2017 10:32
[2017-04-23] MEDS: LACTULOSE SYRUP 20 GM/30 ML CUP PO PRN (20:05)
[2017-04-24 08:00] VITALS: BP 135/76; PULSE 81; RESP 18; TEMP 99.6; O2SAT 98
[2017-04-24] MEDS: SODIUM CHLOR 0.9% 1000 ML INJ 1,000 ML IV SCH ×2 (08:00→18:00)
[2017-04-24] MEDS: DOCUSATE SODIUM 50 MG/SENNA 8.6 MG TAB PO SCH ×2 (08:55→20:31)
[2017-04-24] MEDS: REMOVE OLD PATCH T-DERMAL SCH (08:55)
[2017-04-24] MEDS: ACETAMINOPHEN/HYDROcodone 325 MG/7.5 MG TAB PO PRN ×4 (08:56→23:57)
[2017-04-24] MEDS ORDERED: ENOXAPARIN SODIUM 30 MG/0.3 ML SYRINGE SQ SCH (09:00)
[2017-04-24] MEDS: SODIUM CHLORIDE 0.9% FLUSH 10 ML FLUSH IV FLUSH SCH ×2 (09:06→20:31)
[2017-04-24] MEDS: NICOTINE 21 MG/24 HR PATCH T-DERMAL SCH (09:06)
[2017-04-24] MEDS: LACTULOSE SYRUP 20 GM/30 ML CUP PO PRN (09:11)
--- NOTE | 2017-04-24 10:21 | PD.ORT.PN ---
Subjective Subjective Remarks s/p fall off ladder on saturday left tibial plateau fx and left LCL injury resting comfortably. no complaints Objective Vitals Vital Signs Date Time Temp Pulse Resp B/P (MAP) Pulse Ox O2 Delivery O2 Flow Rate FiO2 04/24/17 08:00 99.6 81 18 135/76 (95) 98 04/23/17 23:35 97.8 74 18 135/89 (104) 97 04/23/17 19:43 98.7 69 18 137/83 (101) 98 04/23/17 16:00 97.2 66 18 134/90 (105) 100 04/23/17 12:00 98.2 84 18 153/72 (99) 98 I/O 04/23/17 04/23/17 04/23/17 04/24/17 04/24/17 04/24/17 07:00 15:00 23:00 07:00 15:00 23:00 Intake Total 0 ml 800 ml 480 ml 360 ml Balance 0 ml 800 ml 480 ml 360 ml Intake Oral 0 ml 800 ml 480 ml 360 ml # Voids 0 3 4 2 # Bowel Movements 0 0 0 0 Objective Remarks LLE: +CKS. 3+ swelling of knee. NVI distally with neg ling. Assessment & Plan Assessment and Plan 1. Left medial tibial plateau fracture, comminuted. 2. Left lateral collateral ligament injury with fracture of the head of the fibula. 3. Medial and lateral meniscal tears. 4. Possible posterior cruciate ligament injury. 5. Chronic tobacco use. -swelling too great at this point -ice cuff and ice bags -elevate -resume diet -plan for surgery when swelling improved. potentially later this week Maynor Last Apr 24, 2017 10:21
[2017-04-24 12:00] VITALS: BP 137/76; PULSE 88; RESP 18; TEMP 99.2; O2SAT 100
--- NOTE | 2017-04-24 12:47 | HHI.PR ---
Subjective Remarks Follow-up for knee fracture Patient has no complaints. He stated pain is controlled. Objective Vitals Vital Signs Date Time Temp Pulse Resp B/P (MAP) Pulse Ox O2 Delivery O2 Flow Rate FiO2 04/24/17 08:00 99.6 81 18 135/76 (95) 98 04/23/17 23:35 97.8 74 18 135/89 (104) 97 04/23/17 19:43 98.7 69 18 137/83 (101) 98 04/23/17 16:00 97.2 66 18 134/90 (105) 100 I/O 04/23/17 04/23/17 04/23/17 04/24/17 04/24/17 04/24/17 07:00 15:00 23:00 07:00 15:00 23:00 Intake Total 0 ml 800 ml 480 ml 360 ml Balance 0 ml 800 ml 480 ml 360 ml Intake Oral 0 ml 800 ml 480 ml 360 ml # Voids 0 3 4 2 # Bowel Movements 0 0 0 0 Objective Remarks GENERAL: in NAD CARDIOVASCULAR: Regular rate and rhythm without murmurs, gallops, or rubs. RESPIRATORY: Breath sounds equal bilaterally. No accessory muscle use. GASTROINTESTINAL: Abdomen soft, non-tender, nondistended. MUSCULOSKELETAL:left knee + swelling that has improved. No erythema noted. Range of motion limited secondary to pain. BACK: Nontender without obvious deformity. No CVA tenderness. Medications and IVs Current Medications Morphine Sulfate (Morphine Inj) 4 mg ONCE ONCE IV PUSH Last administered on 13:54; Start 04/19/17 at 13:30; Stop 04/19/17 at 13:31; Status DC Ondansetron HCl (Zofran Inj) 4 mg ONCE ONCE IV PUSH Last administered on 13:54; Start 04/19/17 at 13:30; Stop 04/19/17 at 13:31; Status DC Sodium Chloride 1,000 ml @ 1,000 mls/hr Q1H IV Last administered on 04/19/17 13:55; Start 04/19/17 at 13:27; Stop 04/19/17 at 14:26; Status DC Iohexol (Omnipaque 350 Inj) 96 ml STK-MED ONCE IVCONTRAST ; Start 04/19/17 at 16 :49; Stop 04/19/17 at 16:50; Status DC Sodium Chloride 1,000 ml @ 100 mls/hr Q10H IV Last administered on 04/21/17 17:23; Start 04/19/17 at 18:00 Sodium Chloride (NS Flush) 2 ml UNSCH PRN IV FLUSH FLUSH AFTER USING IV ACCESS ; Start 04/19/17 at 17:00 Sodium Chloride (NS Flush) 2 ml BID IV FLUSH Last administered on 04/24/17 09: 06; Start 04/19/17 at 21:00 Acetaminophen (Tylenol) 650 mg Q4H PRN PO TEMP > 100.4 Last administered on 18:16; Start 04/19/17 at 17:00 Ondansetron HCl (Zofran Inj) 4 mg Q6H PRN IVP NAUSEA OR VOMITING; Start at 17:00 Naloxone HCl (Narcan Inj) 0.4 mg UNSCH PRN IV PUSH SEE LABEL COMMENTS; Start at 17:00 Senna/Docusate Sodium (Dayanara-Colace) 1 tab BID PO Last administered on 08:55; Start 04/19/17 at 21:00 Magnesium Hydroxide (Milk Of Magnesia Liq) 30 ml Q12H PRN PO MILD - MODERATE CONSTIPATION Last administered on 04/23/17 08:56; Start 04/19/17 at 17:00 Sennosides (Senokot) 17.2 mg Q12H PRN PO MODERATE - SEVERE CONSTIPATION; Start 04/19/17 at 17:00 Bisacodyl (Dulcolax Supp) 10 mg DAILY PRN RECTAL SEVERE CONSITIPATION; Start at 17:00 Lactulose (Lactulose Liq) 30 ml DAILY PRN PO SEVERE CONSITIPATION Last administered on 04/24/17 09:11; Start 04/19/17 at 17:00 Acetaminophen (Tylenol) 650 mg Q4H PRN PO pain 1-2; Start 04/19/17 at 17:30 Nicotine (Habitrol 21 Mg Patch.24 Hr) 1 patch DAILY T-DERMAL Last administered on 04/24/17 09:06; Start 04/19/17 at 18:15 Miscellaneous Information 1 DAILY T-DERMAL Last administered on 04/24/17 08:55 ; Start 04/20/17 at 09:00 Heparin Sodium (Porcine) (Heparin Inj) 5,000 units Q12HR SQ Last administered on 04/21/17 09:52; Start 04/19/17 at 21:00; Stop 04/21/17 at 13:01; Status DC Acetaminophen/ Hydrocodone Bitart ([place] 5-325 Mg) 1 tab Q4H PRN PO PAIN 3 - 5 ; Start 04/19/17 at 21:00 Acetaminophen/ Hydrocodone Bitart ([place] 7.5-325 Mg) 1 tab Q4H PRN PO PAIN 6 - 10 Last administered on 04/24/17 08:56; Start 04/19/17 at 21:00 Influenza Virus Vaccine (Flu (Quadrivalent) Vaccine Inj) 0.5 ml ONCE ONCE IM Last administered on 04/20/17 10:00; Start 04/20/17 at 10:00; Stop 04/20/17 at 10:01; Status DC Lactated Ringer's 1,000 ml @ 30 mls/hr Q24H PRN IV SEE LABEL COMMENTS; Start at 05:45; Stop 04/21/17 at 22:30; Status DC Sodium Chloride 500 ml @ 30 mls/hr [id number] PRN IV SEE LABEL COMMENTS; Start at 05:45; Stop 04/21/17 at 22:29; Status DC Povidone Iodine (Betadine 5% Antisepsis Kit) 1 applic SEMAPHORE OPERATOR PRN EACH NARE SEE LABEL COMMENTS; Start 04/20/17 at 05:45; Stop 04/21/17 at 22:31; Status DC Chlorhexidine Gluconate (Chlorhexidine 2% Cloth) 3 pack SEMAPHORE OPERATOR PRN TOPICAL SEE LABEL COMMENTS; Start 04/20/17 at 05:45; Stop 04/21/17 at 22:31; Status DC Insulin Human Regular (NovoLIN R INJ) See Protocol Table ... SEMAPHORE OPERATOR PRN SQ SEE PROTOCOL TABLE; Start 04/20/17 at 05:45; Stop 04/21/17 at 22:32; Status DC Lactated Ringer's 1,000 ml @ 30 mls/hr Q24H PRN IV SEE LABEL COMMENTS; Start at 07:30; Stop 04/23/17 at 07:29; Status DC Sodium Chloride 500 ml @ 30 mls/hr [id number] PRN IV SEE LABEL COMMENTS; Start at 07:30; Stop 04/23/17 at 07:29; Status DC Povidone Iodine (Betadine 5% Antisepsis Kit) 1 applic SEMAPHORE OPERATOR PRN EACH NARE SEE LABEL COMMENTS; Start 04/22/17 at 07:30; Stop 04/23/17 at 07:29; Status DC Chlorhexidine Gluconate (Chlorhexidine 2% Cloth) 3 pack SEMAPHORE OPERATOR PRN TOPICAL SEE LABEL COMMENTS; Start 04/22/17 at 07:30; Stop 04/23/17 at 07:29; Status DC Insulin Human Regular (NovoLIN R INJ) See Protocol Table ... SEMAPHORE OPERATOR PRN SQ SEE PROTOCOL TABLE; Start 04/22/17 at 07:30; Stop 04/23/17 at 07:29; Status DC Ketorolac Tromethamine (Toradol Inj) 30 mg Q6HR IV PUSH Last administered on 12:49; Start 04/22/17 at 06:45; Stop 04/23/17 at 12:01; Status DC Enoxaparin Sodium (Lovenox Inj) 30 mg Q24H SQ Last administered on 04/24/17 09 :03; Start 04/24/17 at 09:00 A/P Assessment and Plan Left Tibial Plateau Fracture with Displaced bicondylar fracture of left tibia, initial encounter for closed fracture -Unable to do surgery at the moment secondary to swelling. Once swelling has improved patient be scheduled for surgery. -Continue with elevating leg and ice as needed. Tobacco dependence -strongly recommended to stop smoking, Nicotine patch started Marijuana abuse -Education given. DVT prophylaxis per orthopedic surgeon. Discharge Planning Due to swelling surgery most likely will be later this week. Yanira Moctezuma MD Apr 24, 2017 12:47
[2017-04-24 16:00] VITALS: BP 123/67; PULSE 87; RESP 16; TEMP 98.8; O2SAT 98
[2017-04-24 20:00] VITALS: BP 137/71; PULSE 95; RESP 17; TEMP 100.2; O2SAT 99
[2017-04-24 23:58] VITALS: BP 131/72; PULSE 69; RESP 18; TEMP 99; O2SAT 99
[2017-04-25] VITALS (8 sets, daily range): BP systolic 128–148; BP diastolic 72–82; PULSE 73–90; RESP 17–18; TEMP 96.3–98.9; O2SAT 97–99
[2017-04-25] MEDS: SODIUM CHLOR 0.9% 1000 ML INJ 1,000 ML IV SCH ×2 (04:00→12:44)
[2017-04-25] MEDS: ACETAMINOPHEN/HYDROcodone 325 MG/7.5 MG TAB PO PRN ×2 (04:50→13:26)
[2017-04-25] MEDS ORDERED: ACETAMINOPHEN 1000 MG/100 ML 100 ML IV ONE (06:55)
--- NOTE | 2017-04-25 07:11 | PD.ORT.PN ---
Subjective Subjective Remarks s/p fall off ladder on saturday left tibial plateau fx and left LCL injury resting comfortably. no complaints Objective Vitals Vital Signs Date Time Temp Pulse Resp B/P (MAP) Pulse Ox O2 Delivery O2 Flow Rate FiO2 04/25/17 04:03 98.9 73 18 142/72 (95) 98 04/24/17 23:58 99.0 69 18 131/72 (91) 99 04/24/17 20:00 100.2 95 17 137/71 (93) 99 04/24/17 19:24 Room Air 04/24/17 16:00 98.8 87 16 123/67 (85) 98 04/24/17 12:00 99.2 88 18 137/76 (96) 100 04/24/17 08:00 99.6 81 18 135/76 (95) 98 I/O 04/24/17 04/24/17 04/24/17 04/25/17 04/25/17 04/25/17 07:00 15:00 23:00 07:00 15:00 23:00 Intake Total 360 ml 600 ml 360 ml 0 ml Output Total 550 ml Balance 360 ml 50 ml 360 ml 0 ml Intake Oral 360 ml 600 ml 360 ml 0 ml Output Urine Total 550 ml # Voids 2 1 1 # Bowel Movements 0 0 0 0 Objective Remarks LLE: +CKS. 1+ swelling of knee. NVI distally with neg ling. Assessment & Plan Assessment and Plan 1. Left medial tibial plateau fracture, comminuted. 2. Left lateral collateral ligament injury with fracture of the head of the fibula. 3. Medial and lateral meniscal tears. 4. Possible posterior cruciate ligament injury. 5. Chronic tobacco use. -plan for surgery today of knee -npo -consents Maynor Last Apr 25, 2017 07:11
[2017-04-25] MEDS ORDERED: XARE10TA PO (08:16)
[2017-04-25] MEDS ORDERED: HYDR-3583 PO (08:16)
[2017-04-25] MEDS ORDERED: WALKER/ADULT/FO1 MIS (08:16)
[2017-04-25] MEDS ORDERED: ceFAZolin INJ 1,000 MG VIAL ONE (08:41)
[2017-04-25] MEDS ORDERED: GENTAMICIN SULFATE 80 MG/2 ML VIAL ONE (08:41)
[2017-04-25] MEDS ORDERED: VANCOMYCIN HCL 1000 MG VIAL ONE (08:41)
[2017-04-25] MEDS: SODIUM CHLORIDE 0.9% FLUSH 10 ML FLUSH IV FLUSH SCH (09:00)
[2017-04-25] MEDS: DOCUSATE SODIUM 50 MG/SENNA 8.6 MG TAB PO SCH ×2 (09:00→20:34)
[2017-04-25] MEDS: REMOVE OLD PATCH T-DERMAL SCH (09:00)
[2017-04-25] MEDS ORDERED: SUGAMMADEX SODIUM 200 MG/2 ML VIAL IV PUSH ONE ×2 (09:08)
[2017-04-25] MEDS ORDERED: FAMOTIDINE 20 MG/2 ML VIAL ONE (09:09)
[2017-04-25] MEDS ORDERED: SODIUM CHLOR 0.9% 250 ML INJ 250 ML ONE (11:24)
[2017-04-25] MEDS: LACTATED RINGER'S 1000 ML INJ 1,000 ML IV SCH ×2 (11:57→23:19)
[2017-04-25] MEDS ORDERED: diphenhydrAMINE HCL 25 MG CAP PO PRN (12:00)
[2017-04-25] MEDS ORDERED: SODIUM CHLORIDE 0.9% FLUSH 5 ML FLUSH IVF PRN (12:00)
[2017-04-25] MEDS ORDERED: Post-op Orders (for Pharmacy) MISC XX ONE (12:10)
[2017-04-25] MEDS ORDERED: *MEPERIDINE 25 MG INJ VIAL PERIprocedural Use ONLY ONE (12:16)
[2017-04-25] MEDS ORDERED: *morphine SULFATE 8 MG/ML PERIprocedure ONLY ONE ×2 (12:33→12:41)
--- NOTE | 2017-04-25 12:39 | MP ---
cc: NINO MONTE DATE OF SURGERY: 04/25/2017 PREOPERATIVE DIAGNOSES 1. Left medial tibial plateau fracture. 2. Left fibular head fracture with disruption of the lateral collateral ligament. POSTOPERATIVE DIAGNOSES 1. Left medial tibial plateau fracture. 2. Left fibular head fracture with disruption of the lateral collateral ligament. SURGEON Nino Monte MD ASSISTANTS CRUZ Fields PA-C The surgical procedure was assisted by my physician assistants. My PA-C's presence was necessary throughout this case for the manipulation and positioning of the surgical extremity. My PA-C's were assisting me throughout the duration of this procedure. The skill set of a physician personal assistant was medically necessary to complete this procedure. During the surgical case the nursing surgical services director was working at the back table and the physician assistants were directly assisting me. PROCEDURE 1. Open reduction, internal fixation of left medial tibial plateau fracture. 2. Open reduction, internal fixation of left fibular head fracture with primary repair of the lateral collateral ligament. ESTIMATED BLOOD LOSS 150 cc. PLAN OF ACTIVITY Non-weightbearing left leg with knee immobilizer. Passive range of motion 0-30 degrees. DETAILS OF PROCEDURE Giovanni is a 31-year male who sustained a complex injury to his left knee. Informed consent was obtained preoperatively and the operative site was marked. He was brought to the OR and placed on the OR table. He was given IV sedation and general anesthesia. He received IV antibiotics. Time-out procedure was performed. The left leg was prepped with alcohol, followed by Hibiclens and draped in the usual sterile fashion. The procedure began with a 5-inch incision over the medial aspect of the knee. The subcutaneous tissue was dissected with the Bovie. The PES was visualized. The PES was partially elevated to allow for exposure of the medial tibial plateau fracture. The articular surface was partially visualized. The fracture was manipulated, the fracture reduced in anatomic alignment. There is mild comminution along the metaphyseal fragment. K-wires were used to hold provisional fixation. A Synthes plate was contoured to fit the tibia. The plate was provisionally held with K-wires. 3.5 cortical screws were used to compress plate to bone. Multiple cortical screws were placed in the shaft. Additional locking screws were placed proximally. The final fluoroscopy revealed excellent reduction of the fracture and well-placed hardware. The wound was thoroughly irrigated. The fascia was closed with #1 Vicryl, the subcutaneous tissue was closed with 3-0 Vicryl and the skin was closed with johnny. Next attention was turned to the lateral aspect of the knee. A 5-inch incision was made over the lateral aspect the knee in line with the proximal fibula. The subcutaneous tissue was dissected with the Bovie, the iliotibial band was split in line with the fibers. At this point the knee joint was visualized. There are significant soft tissue injury. The fibular head was avulsed with the lateral collateral ligament. There was significant avulsion of the capsule as well. The wound was thoroughly irrigated. The peroneal nerve was visualized. The peroneal nerve appeared to be intact. At this point the fibular head was reduced. A drill hole was made into the proximal fibula and placed into the intramedullary canal of the fibula. A long Synthes screw was now placed. At this point the head of the screw broke off. Attempt was made to remove the shaft of the screw. I was unable to remove the shaft of the screw; this was left in place. The fibular head was reduced again. Two Arthrex 5.5-mm bioabsorbable anchors were now placed into the proximal tibia for additional support. With the fibular head reduced, a 3.5 cortical screw was placed from the fibular head into the tibia. Decompression was obtained. The FiberWire suture was now weaved through the lateral collateral ligament complex for additional stability. The sutures were tied appropriately. Additional drill hole was made into the proximal fibular shaft. Sutures were placed through the lateral collateral ligament, through the drill holes in the proximal fibula. Care was taken to avoid injury to the peroneal nerve at all times. Final fluoroscopy revealed excellent alignment of the fractures with well-placed hardware. The incision was thoroughly irrigated. The fascia was closed with #1 Vicryl. The subcutaneous tissue was closed with 3-0 Vicryl. The skin was closed with johnny. Sterile dressings were applied. The patient placed into a knee immobilizer. He was transferred to Recovery in stable condition. Nino MD SYDNIE Aguilar/SILVIA /12:00 PM /10:28 AM
[2017-04-25] MEDS ORDERED: DO NOT ADM ANY ANTICOAGULANT DRUGS PRN (12:45)
--- NOTE | 2017-04-25 13:18 | HHI.PR ---
Subjective Remarks Follow-up for knee fracture Patient seen in PACU after surgery. He is asking for pain medication. His nurse at the bedside and stated that she just given pain medication. He then asked for his girlfriend. Otherwise he had no other complaints. Objective Vitals Vital Signs Date Time Temp Pulse Resp B/P (MAP) Pulse Ox O2 Delivery O2 Flow Rate FiO2 04/25/17 12:45 85 16 132/72 (92) 99 Room Air 04/25/17 12:30 85 16 139/72 (94) 99 Room Air 04/25/17 12:15 102 16 140/70 (93) 98 Room Air 04/25/17 12:12 97.7 103 16 148/72 (97) 99 Room Air 04/25/17 08:00 98.1 76 18 139/82 (101) 99 04/25/17 04:03 98.9 73 18 142/72 (95) 98 04/24/17 23:58 99.0 69 18 131/72 (91) 99 04/24/17 20:00 100.2 95 17 137/71 (93) 99 04/24/17 19:24 Room Air 04/24/17 16:00 98.8 87 16 123/67 (85) 98 I/O 04/24/17 04/24/17 04/24/17 04/25/17 04/25/17 04/25/17 07:00 15:00 23:00 07:00 15:00 23:00 Intake Total 360 ml 600 ml 360 ml 0 ml 1550 ml Output Total 550 ml 150 ml Balance 360 ml 50 ml 360 ml 0 ml 1400 ml Intake Oral 360 ml 600 ml 360 ml 0 ml Other 1550 ml Output Urine Total 550 ml Estimated Blood Loss 150 ml # Voids 2 1 1 # Bowel Movements 0 0 0 0 Objective Remarks GENERAL: in NAD CARDIOVASCULAR: Regular rate and rhythm without murmurs, gallops, or rubs. RESPIRATORY: Breath sounds equal bilaterally. No accessory muscle use. GASTROINTESTINAL: Abdomen soft, non-tender, nondistended. MUSCULOSKELETAL: Left knee is in bandages. BACK: Nontender without obvious deformity. No CVA tenderness. Medications and IVs Current Medications Morphine Sulfate (Morphine Inj) 4 mg ONCE ONCE IV PUSH Last administered on t 13:54; Start 04/19/17 at 13:30; Stop 04/19/17 at 13:31; Status DC Ondansetron HCl (Zofran Inj) 4 mg ONCE ONCE IV PUSH Last administered on 13:54; Start 04/19/17 at 13:30; Stop 04/19/17 at 13:31; Status DC Sodium Chloride 1,000 ml @ 1,000 mls/hr Q1H IV Last administered on 04/19/17 13:55; Start 04/19/17 at 13:27; Stop 04/19/17 at 14:26; Status DC Iohexol (Omnipaque 350 Inj) 96 ml STK-MED ONCE IVCONTRAST ; Start 04/19/17 at 16 :49; Stop 04/19/17 at 16:50; Status DC Sodium Chloride 1,000 ml @ 100 mls/hr Q10H IV Last administered on 04/25/17 12:44; Start 04/19/17 at 18:00 Sodium Chloride (NS Flush) 2 ml UNSCH PRN IV FLUSH FLUSH AFTER USING IV ACCESS ; Start 04/19/17 at 17:00 Sodium Chloride (NS Flush) 2 ml BID IV FLUSH Last administered on 04/25/17 09: 00; Start 04/19/17 at 21:00 Acetaminophen (Tylenol) 650 mg Q4H PRN PO TEMP > 100.4 Last administered on 18:16; Start 04/19/17 at 17:00 Ondansetron HCl (Zofran Inj) 4 mg Q6H PRN IVP NAUSEA OR VOMITING; Start at 17:00 Naloxone HCl (Narcan Inj) 0.4 mg UNSCH PRN IV PUSH SEE LABEL COMMENTS; Start at 17:00 Senna/Docusate Sodium (Dayanara-Colace) 1 tab BID PO Last administered on 20:31; Start 04/19/17 at 21:00 Magnesium Hydroxide (Milk Of Magnesia Liq) 30 ml Q12H PRN PO MILD - MODERATE CONSTIPATION Last administered on 04/23/17 08:56; Start 04/19/17 at 17:00 Sennosides (Senokot) 17.2 mg Q12H PRN PO MODERATE - SEVERE CONSTIPATION; Start 04/19/17 at 17:00 Bisacodyl (Dulcolax Supp) 10 mg DAILY PRN RECTAL SEVERE CONSITIPATION; Start at 17:00 Lactulose (Lactulose Liq) 30 ml DAILY PRN PO SEVERE CONSITIPATION Last administered on 04/24/17 09:11; Start 04/19/17 at 17:00 Acetaminophen (Tylenol) 650 mg Q4H PRN PO pain 1-2; Start 04/19/17 at 17:30 Nicotine (Habitrol 21 Mg Patch.24 Hr) 1 patch DAILY T-DERMAL Last administered on 04/24/17 09:06; Start 04/19/17 at 18:15 Miscellaneous Information 1 DAILY T-DERMAL Last administered on 04/24/17 08:55 ; Start 04/20/17 at 09:00 Heparin Sodium (Porcine) (Heparin Inj) 5,000 units Q12HR SQ Last administered on 04/21/17 09:52; Start 04/19/17 at 21:00; Stop 04/21/17 at 13:01; Status DC Acetaminophen/ Hydrocodone Bitart (Merigold 5-325 Mg) 1 tab Q4H PRN PO PAIN 3 - 5 ; Start 04/19/17 at 21:00 Acetaminophen/ Hydrocodone Bitart (Merigold 7.5-325 Mg) 1 tab Q4H PRN PO PAIN 6 - 10 Last administered on 04/25/17 04:50; Start 04/19/17 at 21:00 Influenza Virus Vaccine (Flu (Quadrivalent) Vaccine Inj) 0.5 ml ONCE ONCE IM Last administered on 04/20/17 10:00; Start 04/20/17 at 10:00; Stop 04/20/17 at 10:01; Status DC Lactated Ringer's 1,000 ml @ 30 mls/hr Q24H PRN IV SEE LABEL COMMENTS; Start at 05:45; Stop 04/21/17 at 22:30; Status DC Sodium Chloride 500 ml @ 30 mls/hr [id number] PRN IV SEE LABEL COMMENTS; Start at 05:45; Stop 04/21/17 at 22:29; Status DC Povidone Iodine (Betadine 5% Antisepsis Kit) 1 applic FOUNDATION ASSISTANT PRN EACH NARE SEE LABEL COMMENTS; Start 04/20/17 at 05:45; Stop 04/21/17 at 22:31; Status DC Chlorhexidine Gluconate (Chlorhexidine 2% Cloth) 3 pack FOUNDATION ASSISTANT PRN TOPICAL SEE LABEL COMMENTS; Start 04/20/17 at 05:45; Stop 04/21/17 at 22:31; Status DC Insulin Human Regular (NovoLIN R INJ) See Protocol Table ... FOUNDATION ASSISTANT PRN SQ SEE PROTOCOL TABLE; Start 04/20/17 at 05:45; Stop 04/21/17 at 22:32; Status DC Lactated Ringer's 1,000 ml @ 30 mls/hr Q24H PRN IV SEE LABEL COMMENTS; Start at 07:30; Stop 04/23/17 at 07:29; Status DC Sodium Chloride 500 ml @ 30 mls/hr [id number] PRN IV SEE LABEL COMMENTS; Start at 07:30; Stop 04/23/17 at 07:29; Status DC Povidone Iodine (Betadine 5% Antisepsis Kit) 1 applic FOUNDATION ASSISTANT PRN EACH NARE SEE LABEL COMMENTS; Start 04/22/17 at 07:30; Stop 04/23/17 at 07:29; Status DC Chlorhexidine Gluconate (Chlorhexidine 2% Cloth) 3 pack FOUNDATION ASSISTANT PRN TOPICAL SEE LABEL COMMENTS; Start 04/22/17 at 07:30; Stop 04/23/17 at 07:29; Status DC Insulin Human Regular (NovoLIN R INJ) See Protocol Table ... FOUNDATION ASSISTANT PRN SQ SEE PROTOCOL TABLE; Start 04/22/17 at 07:30; Stop 04/23/17 at 07:29; Status DC Ketorolac Tromethamine (Toradol Inj) 30 mg Q6HR IV PUSH Last administered on 12:49; Start 04/22/17 at 06:45; Stop 04/23/17 at 12:01; Status DC Enoxaparin Sodium (Lovenox Inj) 30 mg Q24H SQ Last administered on 04/24/17 09 :03; Start 04/24/17 at 09:00; Stop 04/25/17 at 12:00; Status DC Acetaminophen 100 ml @ As Directed STK-MED ONCE IV ; Start 04/25/17 at 06:55; Stop 04/25/17 at 06:56; Status DC Vancomycin HCl (Vancomycin Inj) 1,000 mg STK-MED ONCE .ROUTE Last administered on 04/25/17 09:35; Start 04/25/17 at 08:41; Stop 04/25/17 at 08:42; Status DC Cefazolin Sodium (Ancef Inj) 2,000 mg STK-MED ONCE .ROUTE Last administered on 04/25/17 09:33; Start 04/25/17 at 08:41; Stop 04/25/17 at 08:42; Status DC Gentamicin Sulfate (Gentamicin Inj) 240 mg STK-MED ONCE .ROUTE Last administered on 04/25/17 10:07; Start 04/25/17 at 08:41; Stop 04/25/17 at 08:42 ; Status DC Sugammadex Sodium (Bridion Inj) 200 mg STK-MED ONCE IV PUSH ; Start 04/25/17 at 09:08; Stop 04/25/17 at 09:09; Status DC Famotidine (Pepcid Inj) 20 mg STK-MED ONCE .ROUTE ; Start 04/25/17 at 09:09; Stop 04/25/17 at 09:10; Status DC Sodium Chloride 250 ml @ As Directed STK-MED ONCE .ROUTE Last administered on 04/25/17 09:35; Start 04/25/17 at 11:24; Stop 04/25/17 at 11:25; Status DC Lactated Ringer's 1,000 ml @ 80 mls/hr [id number] IV ; Start 04/25/17 at 11:57; Status UNV IV Flush (NS Flush) 2 ml UNSCH PRN IVF FLUSH AFTER USING IV ACCESS; Start 04/25 at 12:00; Status UNV IV Flush (NS Flush) 2 ml BID IVF ; Start 04/25/17 at 21:00; Status UNV Miscellaneous Information (Post-op Orders (for Pharmacy)) STAT ONCE XX ; Start 04/25/17 at 12:00; Stop 04/25/17 at 12:01; Status UNV Enoxaparin Sodium (Lovenox Inj) 30 mg Q12H SQ ; Start 04/25/17 at 18:00; Status UNV Cefazolin Sodium/ Dextrose 50 ml @ 100 mls/hr Q8H IV ; Start 04/25/17 at 12:00 ; Stop 04/27/17 at 04:29; Status UNV Vancomycin HCl 1000 mg/Sodium Chloride 250 ml @ 250 mls/hr Q12H IV ; Start at 12:00; Stop 04/26/17 at 12:59; Status UNV Acetaminophen/ Hydrocodone Bitart (Merigold 10-325 Mg) 1 tab Q3H PRN PO PAIN 3<10 ; Start 04/25/17 at 12:00; Status UNV Diphenhydramine HCl (Benadryl) 25 mg Q6H PRN PO ITCHING; Start 04/25/17 at 12: 00; Status UNV Morphine Sulfate (Morphine Inj) 4 mg Q3H PRN IV PUSH break thru pain; Start at 12:00; Status UNV Cholecalciferol (Vitamin D3) 1,000 units DAILY PO ; Start 04/26/17 at 09:00; Status UNV Ergocalciferol (Drisdol) 50,000 units Q7D PO ; Start 04/25/17 at 12:00; Status UNV Meperidine HCl (*DEMEROL INJ PERIprocedural ONLY) 25 mg STK-MED ONCE .ROUTE Last administered on 04/25/17 12:16; Start 04/25/17 at 12:16; Stop 04/25/17 at 12:17; Status DC Morphine Sulfate (*morphine INJ PERIprocedure ONLY) 8 mg STK-MED ONCE .ROUTE Last administered on 04/25/17 12:33; Start 04/25/17 at 12:33; Stop 04/25/17 at 12:34; Status DC Miscellaneous Information ALL NURSING DEPARTME... UNSCH PRN .XX SEE LABEL COMMENTS; Start 04/25/17 at 12:45; Stop 04/26/17 at 12:44 Morphine Sulfate (*morphine INJ PERIprocedure ONLY) 8 mg STK-MED ONCE .ROUTE Last administered on 04/25/17 12:41; Start 04/25/17 at 12:41; Stop 04/25/17 at 12:42; Status DC A/P Assessment and Plan Left Tibial Plateau Fracture with Displaced bicondylar fracture of left tibia, initial encounter for closed fracture -Status post knee surgery. Pending OR report. Tobacco dependence -strongly recommended to stop smoking, Nicotine patch started Marijuana abuse -Education given. DVT prophylaxis per orthopedic surgeon. Discharge Planning Hopefully patient can be discharged tomorrow. Yanira Moctezuma MD Apr 25, 2017 13:18
[2017-04-25] MEDS: NICOTINE 21 MG/24 HR PATCH T-DERMAL SCH (13:30)
[2017-04-25] MEDS ORDERED: LACTATED RINGER'S 1000 ML INJ 1,000 ML IV ONE (13:48)
[2017-04-25] MEDS ORDERED: LIDOCAINE HCL 1% PF 5 ML AMPULE OTHER ONE (13:48)
[2017-04-25] MEDS ORDERED: PROPOFOL 200 MG/20 ML AMP IV ONE (13:48)
[2017-04-25] MEDS ORDERED: MIDAZOLAM HCL 2 MG/2 ML VIAL IV ONE (13:48)
[2017-04-25] MEDS ORDERED: ONDANSETRON HCL 4 MG/2 ML VIAL IV PUSH ONE (13:48)
[2017-04-25] MEDS ORDERED: KETOROLAC TROMETHAMINE 60 MG/2 ML (IM) VIAL IM ONE (13:48)
[2017-04-25] MEDS ORDERED: DEXAMETHASONE SOD PHOS 4 MG/ML VIAL IV ONE (13:48)
[2017-04-25] MEDS ORDERED: ERGOCALCIFEROL (VIT D2) 50,000 UNIT CAP PO SCH (15:00)
[2017-04-25] MEDS: MORPHINE SULFATE 4 MG/ML INJ IV PUSH PRN ×2 (15:26→23:45)
[2017-04-25] MEDS: ceFAZolin 2 GM PREMIX 50 ML IV SCH ×2 (17:59→23:45)
[2017-04-25] MEDS: ACETAMINOPHEN/HYDROcodone 325 MG/10 MG TAB PO PRN ×2 (19:33→22:39)
--- NOTE | 2017-04-25 20:04 | RADRPT ---
EXAM DATE/TIME: 04/25/2017 10:49 [facility] COMPARISON: CT KNEE LEFT W/O CONTRAST, April 19, 2017, 15:40. INDICATIONS : Left tibia/fibula open reduction internal fixation. MEDICAL HISTORY : None. SURGICAL HISTORY : None. ENCOUNTER: Initial ACUITY: 1 day PAIN SCORE: Non-responsive. LOCATION: Left tibia/fibula FINDINGS: Interval screw and plate fixation of the medial tibial plateau and tibial eminence fracture that appe ars normally aligned. Also pinning and screw fixation of the proximal fibular fracture in normal alig nment. CONCLUSION: Interim open reduction internal fixation of proximal tibia and fibula fractures as above. Normal alig nment. No acute complication demonstrated. Vazquez Chin MD on April 25, 2017 at 20:02 Board Certified Radiologist. This report was verified electronically.
[2017-04-25] MEDS: SODIUM CHLORIDE 0.9% FLUSH 5 ML FLUSH IVF SCH (20:34)
[2017-04-25] MEDS: VANCOMYCIN INJ 1,000 MG in SODIUM CHLOR 0.9% 250 ML INJ 250 ML IV SCH (20:34)
[2017-04-26] VITALS: BP 130/71; PULSE 83; RESP 16; TEMP 97.3; O2SAT 99
[2017-04-26] MEDS: ACETAMINOPHEN/HYDROcodone 325 MG/10 MG TAB PO PRN ×4 (03:09→14:04)
[2017-04-26 04:00] VITALS: BP 146/77; PULSE 74; RESP 17; TEMP 97.2; O2SAT 99
[2017-04-26 06:49] LABS: HEMATOCRIT 34.2 % (39.0-51.0); REVIEW FLAG FINAL
--- NOTE | 2017-04-26 07:11 | PD.ORT.PN ---
Subjective Subjective Remarks POD 1 s/p ORIF left tibial plateau with LCL reconstruction doing well. pain controlled. no complaints Objective Vitals Vital Signs Date Time Temp Pulse Resp B/P (MAP) Pulse Ox O2 Delivery O2 Flow Rate FiO2 04/26/17 04:00 97.2 74 17 146/77 (100) 99 04/26/17 00:00 97.3 83 16 130/71 (90) 99 04/25/17 21:40 98 04/25/17 21:27 99 04/25/17 20:00 97.5 90 17 138/75 (96) 99 04/25/17 16:34 97 04/25/17 16:00 96.3 81 18 148/80 (102) 99 04/25/17 13:30 97.5 76 18 128/75 (92) 98 04/25/17 12:45 85 16 132/72 (92) 99 Room Air 04/25/17 12:30 85 16 139/72 (94) 99 Room Air 04/25/17 12:15 102 16 140/70 (93) 98 Room Air 04/25/17 12:12 97.7 103 16 148/72 (97) 99 Room Air 04/25/17 08:00 98.1 76 18 139/82 (101) 99 I/O 04/25/17 04/25/17 04/25/17 04/26/17 04/26/17 04/26/17 07:00 15:00 23:00 07:00 15:00 23:00 Intake Total 0 ml 1550 ml 1020 ml 770 ml Output Total 150 ml 450 ml Balance 0 ml 1400 ml 570 ml 770 ml Intake Oral 0 ml 720 ml 720 ml IV Total 300 ml 50 ml Other 1550 ml Output Urine Total 450 ml Estimated Blood Loss 150 ml # Voids 1 2 2 # Bowel Movements 0 Result Diagram: 04/26/17 0617 Objective Remarks LLE: +CKS. 1+ swelling of knee. NVI distally with neg ling. Assessment & Plan Assessment and Plan 1. Left medial tibial plateau fracture, comminuted. 2. Left lateral collateral ligament injury with fracture of the head of the fibula. 3. Medial and lateral meniscal tears. 4. Possible posterior cruciate ligament injury. 5. Chronic tobacco use. -NWB -CKs at all times except for PT -PT: PROM 0-30. no leg lifts, quad sets, arom -ortho cleared for DC home -f/u with [facility];l or PA in 2 weeks Maynor Last Apr 26, 2017 07:11
--- NOTE | 2017-04-26 07:12 | HHI.FF ---
Face to Face Verification Diagnosis: (1) Tibial plateau fracture, left Physical Therapy Gait training Knee: Knee fracture, Protocol: Left, Non weight bearing Canvas Knee Splint: At all times, Remove only with PT Left LE Range of Motion: Passive ROM (0-30deg. no AROM/quad sets/leg lifts/ strengthening) Nursing Dressing Changes: Daily dressing change, Tello wrap, 4x4s, Xeroform I have seen patient Giovanni Kasper on 04/26/17. My clinical findings support the need for the requested home health care services because: Ltd mobility - disease progression I certify that my clinical findings support that this patient is homebound because: Post-op weakness Maynor Last Apr 26, 2017 07:12
[2017-04-26 07:53] VITALS: BP 157/89; PULSE 77; RESP 18; TEMP 96.3; O2SAT 98
[2017-04-26] MEDS ORDERED: CHOLECALCIFEROL (VIT D3) 1000 UNIT TAB PO SCH (09:00)
[2017-04-26] MEDS: MORPHINE SULFATE 4 MG/ML INJ IV PUSH PRN (09:11)
[2017-04-26] MEDS: ceFAZolin 2 GM PREMIX 50 ML IV SCH (09:12)
[2017-04-26] MEDS: SODIUM CHLORIDE 0.9% FLUSH 5 ML FLUSH IVF SCH (09:13)
[2017-04-26] MEDS: REMOVE OLD PATCH T-DERMAL SCH (09:13)
[2017-04-26] MEDS: VANCOMYCIN INJ 1,000 MG in SODIUM CHLOR 0.9% 250 ML INJ 250 ML IV SCH (09:13)
[2017-04-26] MEDS: NICOTINE 21 MG/24 HR PATCH T-DERMAL SCH (09:14)
[2017-04-26] MEDS: DOCUSATE SODIUM 50 MG/SENNA 8.6 MG TAB PO SCH (09:14)
[2017-04-26] MEDS ORDERED: ENOXAPARIN SODIUM 30 MG/0.3 ML SYRINGE SQ SCH (11:00)
[2017-04-26 11:32] VITALS: BP 145/91; PULSE 79; RESP 18; TEMP 96.7; O2SAT 100
[2017-04-26] MEDS: LACTATED RINGER'S 1000 ML INJ 1,000 ML IV SCH (12:57)
--- NOTE | 2017-04-26 15:03 | HHI.DS ---
Discharge Summary Admission Date Apr 19, 2017 at 16:40 Discharge Date: Apr 26, 2017 Admitting Diagnosis left knee tibial plateau and proximal fibular fracture, fall (1) Tibial plateau fracture, left ICD Code: S82.142A - Displaced bicondylar fracture of left tibia, initial encounter for closed fracture Status: Acute (2) Fibula fracture ICD Code: S82.409A - Unspecified fracture of shaft of unspecified fibula, initial encounter for closed fracture Status: Acute Procedures See hospital course. Brief History - From Admission This is a pleasant 31 y/o with status post fall from a Ladder, after he lost his balance, Per patient he landed on his left knee. Patient has pain only to his left knee. He denies any other injury. States sign mild numbness around the area of the knee. Patient does have deformity that is obvious on exam on the left knee. No ankle , foot, hip pain noted. No back or neck pain. No head injury or loss of consciousness. Fall was witnessed by family members who attests to the kind of fall he had. Patient takes no medications. No prior injuries to this knee. Patient states that his pain is 10 out of 10. He is able to move the toes and the ankle. No obvious discoloration of the ankle. Patient does have a hematoma noted on the left knee. No allergies to medication. No other injuries noted. CBC/BMP: 04/26/17 0617 Significant Findings Laboratory Tests Test 04/26/17 06:17 Hemoglobin 11.7 GM/DL (13.0-17.0) Hematocrit 34.2 % (39.0-51.0) Imaging Last Impressions Tibia/Fibula X-Ray 04/25/17 0000 Signed Impressions: Service Date/Time: March 10:49 - CONCLUSION: Interim open reduction internal fixation of proximal tibia and fibula fractures as above. Normal alignment. No acute complication demonstrated. Vazquez Chin MD Knee MRI 04/19/17 1409 Signed Impressions: Service Date/Time: Wednesday, April 19, 2017 14:57 - CONCLUSION: 1. Oblique fracture of the medial tibial plateau with slight depression. The fracture line extends across midline and involves the anterior tibial spines and anterior medial tibial plateau. 2. Minimal fracture of the anterior medial femoral condyle. 3. Tearing of both medial lateral menisci. 4. Avulsion fracture of the fibular head. 5. Extensive tearing of the lateral collateral ligament. Talat Burkett MD Chest X-Ray 04/19/17 1323 Signed Impressions: Service Date/Time: Wednesday, April 19, 2017 13:55 - CONCLUSION: No acute cardiopulmonary process. Brian Kyle MD Knee X-Ray 04/19/17 1201 Signed Impressions: Service Date/Time: Wednesday, April 19, 2017 12:53 - CONCLUSION: Hemarthrosis. Depressed fracture medial tibial plateau. Fracture posterior lateral tibia which is distracted. No evidence dislocation. Ulises Culver MD Orbit X-Ray 04/19/17 0000 Signed Impressions: Service Date/Time: Wednesday, April 19, 2017 14:38 - CONCLUSION: Cleared for MRI. Negative for metallic radiopaque foreign body Ulises Culver MD Lower Extremity CT 04/19/17 0000 Signed Impressions: Service Date/Time: Wednesday, April 19, 2017 15:40 - CONCLUSION: 1. Fracture of the medial tibial plateau extending into the midline involving anterior tibial spine. Slight depression. 2. Avulsion fracture small portion of the fibular head. 3. Minimal fracture of the anterior lateral tibial plateau and anterior medial femoral condyle. Talat Burkett MD Aorta w/Runoff CTA 04/19/17 0000 Signed Impressions: Service Date/Time: Wednesday, April 19, 2017 15:40 - CONCLUSION: 1. Comminuted tibial plateau fracture medially on the left. 2. 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 3. Otherwise, inflow and outflow vasculature is patent bilaterally. Brian Kyle MD PE at Discharge GENERAL: in NAD CARDIOVASCULAR: Regular rate and rhythm without murmurs, gallops, or rubs. RESPIRATORY: Breath sounds equal bilaterally. No accessory muscle use. GASTROINTESTINAL: Abdomen soft, non-tender, nondistended. MUSCULOSKELETAL: Left knee is in bandages with brace in place. BACK: Nontender without obvious deformity. No CVA tenderness. Pt update on day of discharge Follow-up for surgery Patient had no complaints. He stated he is very anxious to go home. Pain is controlled. His girlfriend is at the bedside during interview. Patient is tolerating by mouth intake. Hospital Course Left Tibial Plateau Fracture with Displaced bicondylar fracture of left tibia, initial encounter for closed fracture -Patient was admitted to the orthopedic floor in which she had severe swelling so surgery cannot be done immediately. One swelling improved patient had ORIF left tibial plateau with LCL reconstruction on 04/25/2017 and was discharged with no complications. Tobacco dependence -strongly recommended to stop smoking, Nicotine patch started Marijuana abuse -Education given. Pt Condition on Discharge: Good Discharge Disposition: Discharge Home Discharge Time: <= 30 minutes Discharge Instructions DIET: Follow Instructions for: As Tolerated, No Restrictions Activities you can perform: See Additionl Instruction Other Activity Instructions: -Nonweightbearing -CKs at all times except for Physical therapy. Follow up Referrals: Orthopedics - 2 Weeks @ [facility] with Nino Monte MD PCP Follow-up - 1 Week New Medications: Hydrocodone-Acetaminophen (Hydrocodone-Acetaminophen) 10-325 mg Tab 1 TAB PO Q4H PRN for PAIN, #60 TAB 0 Refills Rivaroxaban (Xarelto) 10 Mg Tab 10 MG PO DAILY for Blood Clot Prevention, #14 TAB 0 Refills Walker/Adult/Folding (Walker/Adult/Folding) 1 Mis Mis EA .ROUTE DIRECTED, #1 0 Refills Yanira Moctezuma MD Apr 26, 2017 15:03
== END 2017-04-26 14:11 | disposition home or self-care (01) | DRG 489 ==
LOC: NEPE 11:48 → NEDA 16:40 → N06A 20:13
PROVIDERS: ADMIT Family Medicine; ATTEND Family Medicine
PROC: 0QSH04Z Reposition Left Tibia with Internal Fixation Device, Open Approach (ICD-10-PCS; 2017-04-25)
PROC: 0QSK04Z Reposition Left Fibula with Internal Fixation Device, Open Approach (ICD-10-PCS; 2017-04-25)
PROC: 0MQP0ZZ Repair Left Knee Bursa and Ligament, Open Approach (ICD-10-PCS; principal; 2017-04-25 09:16)
DX: S82.142A Displaced bicondylar fracture of left tibia, initial encounter for closed fracture (principal); S82.832A Other fracture of upper and lower end of left fibula, initial encounter for closed fracture; S83.282A Other tear of lateral meniscus, current injury, left knee, initial encounter; S83.242A Other tear of medial meniscus, current injury, left knee, initial encounter; S83.422A Sprain of lateral collateral ligament of left knee, initial encounter; W11.XXXA Fall on and from ladder, initial encounter; F12.10 Cannabis abuse, uncomplicated; F17.210 Nicotine dependence, cigarettes, uncomplicated; Z23 Encounter for immunization
CPT/HCPCS: 70250; 71010; 73564; 73590; 73700; 73721; 75635; 76000; 80048; 83735; 85014; 85018; 85025; 85610; 85730; 86850; 86900; 86901; 87641; 90471; 90686; 93005; 94150; 96361; 96374; 96375; C1713; E0113; G0008; J0131; J0690; J1100; J1580; J1644; J1650; J1885; J2175; J2250; J2270; J2405; J3010; J3370; J7030; J7050; J7120; L1830; Q2038; Q9967